=== PATIENT | male | born 2005 | race African-American/Black ===

== ENCOUNTER 2025-04-18 21:56 | Emergency (ER) | payer OTHER, SELFPAY ==
--- NOTE | ~2025-04-18 | CT_ITS ---
EXAMINATION: CT BRAIN W/O DATE: 04/18/2025 22:30 INDICATION: TECHNIQUE: Computed tomography (CT) of the head was performed without intravenous contrast. The dose-length product was 605.33 mGy-cm. COMPARISON: No prior studies for comparison. FINDINGS: Normal brain parenchymal volume for age. Normal abreu-white differentiation. No acute intracranial hemorrhage, infarction, mass or mass effect. No ventriculomegaly or midline shift. Midline sagittal images demonstrate a normal corpus callosum, craniovertebral junction and sella turcica. Basilar cisterns are patent. Paranasal sinuses and mastoids are pneumatized. No depressed skull fractures. IMPRESSION: 1. No acute intracranial abnormality. Reviewed, dictated and finalized at location O.
--- NOTE | ~2025-04-18 | XR_ITS ---
EXAMINATION: XR chest 1V 04/18/2025 22:33 INDICATION: Chest pain. History of sickle cell anemia. PROCEDURE: AP view of the chest COMPARISON: No prior studies for comparison. FINDINGS: The lungs are clear. The cardiomediastinal silhouette is within normal limits. There are no pleural effusions. There is no pneumothorax suspected. IMPRESSION: 1: NO ACUTE CARDIOPULMONARY DISEASE. Reviewed, dictated and finalized at location O.
[2025-04-18 21:56] VITALS: BP 142/67; PULSE 106; RESP 20; TEMP 37; O2SAT 100
[2025-04-18 22:02] VITALS: PULSE 101
[2025-04-18 22:03] VITALS: RESP 17
--- NOTE | 2025-04-18 22:10 | ECG_ITS ---
Test Date: 2025-04-18 22:42:19 Measurements Intervals [place] Rate: 85 P: 50 [place]: 229 QRS: 41 QRSD: 88 T: 30 QT: 353 QTc: 422 Interpretive Statements SINUS RHYTHM WITH FIRST DEGREE AV BLOCK BORDERLINE ECG No previous ECG available for comparison Electronically Signed On 04-19-2025 07:07:43 CDT by Neymar Garcia D.O.
--- NOTE | 2025-04-18 22:11 | ED_ITS ---
HPI - General Adult General Chief complaint: Unspecified <Carmen Munoz PA-C - Last Filed: 04/19/25 03:16> Stated complaint: Pain all over <Carmen Munoz PA-C - Last Filed: 04/19/25 03:16> Time Seen by Provider: 04/19/25 03:24 <Carmen Munoz PA-C - Last Filed: 04/19/25 03:16> History of Present Illness HPI narrative: 19-year-old male presents emergency department via EMS from his college function for concerns for sickle cell crisis. Originally EMS states they were called out for a panic attack. Per the patient he was at a [employer] ED school function dancing when he states he started to get very hot because they are so many people around him. He then went to the staff nearby and became lightheaded and states he felt like he was about to pass out. The staff caught him the patient did not lose consciousness or hit his head. EMS was then contacted and the patient was found lying on the ground anxious. He then started reporting that he was having ?pain all over? and concerned that he was having a sickle cell crisis. Patient was given 75 mcg of fentanyl in the ED with reported improvement by EMS. On arrival to the ED the patient is complaining of headache, chest pain, abdominal pain, tingling in his hands and intermittent difficulty breathing. States this is typically how his sickle cell crisis present. Denies cough, fever, hemoptysis, recent surgeries or hospitalizations, hx of VTE. He believes he is on 5 medications for his sickle cell. His mother is on facetime and was able to confirm his medications over the phone which are as follows: hydrocodone 5mg, folic acid, Zofran, hydroxyurea. States he did not take any hydrocodone today. His management information systems director is Dr. Delaney in [place], [place]. <Carmen Munoz PA-C - Last Filed: 04/19/25 03:16> Related Data Allergies/adverse reactions: Allergies Allergy/AdvReac Type Severity Reaction Status Date / Time No Known Allergies Allergy Verified 04/18/25 22:37 <Carmen Munoz PA-C - Last Filed: 04/19/25 03:16> Review of Systems 2 Review of Systems: All systems reviewed & are unremarkable except as noted in HPI and below <Carmen Munoz PA-C - Last Filed: 04/19/25 03:16> Exam 2 Narrative: GENERAL: Anxious appearing HEAD: Normocephalic, atraumatic. EYES: EOMI. ENT: Nares clear, no rhinorrhea or epistaxis. Mucous membranes moist. NECK: Supple. CHEST: Clear to auscultation. No respiratory distress. Intermittent less than 5 second episodes of tachypnea HEART: Regular rate and rhythm. No murmur heard. Normal peripheral pulses. ABDOMEN: Soft, nontender, nondistended, normal active bowel sounds. No rebound, guarding rigidity. No CVA tenderness EXTREMITIES: Normal range of motion. No edema. Negative Homans bilaterally SKIN: Warm, dry, no rash. NEURO: No focal deficits. Alert and oriented x3. Moving all extremities spontaneously. Cranial nerves 2-12 grossly intact <Carmen Munoz PA-C - Last Filed: 04/19/25 03:16> Course CLERK OF SUPERIOR COURT/PA Physician Supervision This visit was performed by both a physician and an APC. For this patient encounter, I reviewed the CLERK OF SUPERIOR COURT or PA documentation, treatment plan, and medical decision making and had [id number] time with this patient. I performed all aspects of the MDM as documented. <Sima Pablo MD - Last Filed: 04/19/25 04:36> Vital Signs Vital signs: Vital Signs Temperature 98.6 F 04/18/25 21:56 Pulse Rate 106 H 04/18/25 21:56 Respiratory Rate 20 04/18/25 21:56 Blood Pressure 142/67 H 04/18/25 21:56 Pulse Oximetry 100 04/18/25 21:56 Oxygen Delivery Room Air 04/18/25 21:56 Temperature 98.6 F 04/18/25 21:56 Pulse Rate 58 L 04/19/25 04:18 Respiratory Rate 21 H 04/19/25 04:18 Blood Pressure 138/74 04/19/25 04:18 Pulse Oximetry 100 04/19/25 04:18 Oxygen Delivery Room Air 04/18/25 21:56 <Carmen Munoz PA-C - Last Filed: 04/19/25 03:16> Vital Signs Temperature 98.6 F 04/18/25 21:56 Pulse Rate 106 H 04/18/25 21:56 Respiratory Rate 20 04/18/25 21:56 Blood Pressure 142/67 H 04/18/25 21:56 Pulse Oximetry 100 04/18/25 21:56 Oxygen Delivery Room Air 04/18/25 21:56 Temperature 98.6 F 04/18/25 21:56 Pulse Rate 58 L 04/19/25 04:18 Respiratory Rate 21 H 04/19/25 04:18 Blood Pressure 138/74 04/19/25 04:18 Pulse Oximetry 100 04/19/25 04:18 Oxygen Delivery Room Air 04/18/25 21:56 <Sima Pablo MD - Last Filed: 04/19/25 04:36> Medical Decision Making MDM Narrative Medical decision making narrative: 19-year-old male with history of sickle cell anemia presents emergency department with concerns for sickle cell crisis and possible anxiety. See HPI for further history. Triage vitals with blood pressure 142/67 mild tachycardia 106. Patient is afebrile nontoxic appearing. He is very anxious appearing on exam with intermittent bouts of tachypnea. CBC with leukocytosis of 13.1 and hemoglobin of 11.8. His % reticulocyte is 5.9 to%. Patient has never been to our hospital before, no prior labs for comparison. His chemistry show bilirubin of 2.9, otherwise unremarkable. Lipase is normal. D-dimer is mildly elevated to 0.77, PE excluded with years criteria. EKG shows normal sinus rhythm with first-degree AV block, IN interval is 229, normal QRS duration, normal QTC, no ischemic changes. Initial troponin within normal limits. Chest x-ray shows no acute cardiopulmonary disease. Patient given IV fluids, Tylenol, Pepcid, Toradol, morphine and Valium with improvement. On re-evaluation patient is sleeping and easily awoken, resting comfortably in exam bed. He states he is still having headache and abdominal pain but his chest pain has resolved. Will provide Compazine and Benadryl. Pt reevaluated and is found sleeping comfortably again, easily aroused with verbal stimuli. Delta troponin did increase from 0.026 to 0.042. He continues to deny chest pain. Repeat EKG unchanged. Plan to transfer to tertiary facility with hematology consult for sickle cell crisis and elevated troponin. Pending transfer at time of sign-out to Dr. Pablo. <Carmen Munoz PA-C - Last Filed: 04/19/25 03:16> 19-year-old male with history of sickle cell anemia presents emergency department with concerns for sickle cell crisis and possible anxiety. See HPI for further history. Triage vitals with blood pressure 142/67 mild tachycardia 106. Patient is afebrile nontoxic appearing. He is very anxious appearing on exam with intermittent bouts of tachypnea. CBC with leukocytosis of 13.1 and hemoglobin of 11.8. His % reticulocyte is 5.9 to%. Patient has never been to our hospital before, no prior labs for comparison. His chemistry show bilirubin of 2.9, otherwise unremarkable. Lipase is normal. D-dimer is mildly elevated to 0.77, PE excluded with years criteria. EKG shows normal sinus rhythm with first-degree AV block, IN interval is 229, normal QRS duration, normal QTC, no ischemic changes. Initial troponin within normal limits. Chest x-ray shows no acute cardiopulmonary disease. Patient given IV fluids, Tylenol, Pepcid, Toradol, morphine and Valium with improvement. On re-evaluation patient is sleeping and easily awoken, resting comfortably in exam bed. He states he is still having headache and abdominal pain but his chest pain has resolved. Will provide Compazine and Benadryl. Pt reevaluated and is found sleeping comfortably again, easily aroused with verbal stimuli. Delta troponin did increase from 0.026 to 0.042. He continues to deny chest pain. Repeat EKG unchanged. Plan to transfer to tertiary facility with hematology consult for sickle cell crisis and elevated troponin. Pending transfer at time of sign-out to Dr. Pablo. Samy: Patient was signed out to me pending transfer. Case discussed with the on-call hospitalist Dr. Charles at 0426 who accepted transfer. Patient is currently pending a bed. <Sima Pablo MD - Last Filed: 04/19/25 04:36> Vital Signs Vital Signs: Vital Signs Temperature 98.6 F 04/18/25 21:56 Pulse Rate 106 H 04/18/25 21:56 Respiratory Rate 20 04/18/25 21:56 Blood Pressure 142/67 H 04/18/25 21:56 Pulse Oximetry 100 04/18/25 21:56 Oxygen Delivery Room Air 04/18/25 21:56 Temperature 98.6 F 04/18/25 21:56 Pulse Rate 58 L 04/19/25 04:18 Respiratory Rate 21 H 04/19/25 04:18 Blood Pressure 138/74 04/19/25 04:18 Pulse Oximetry 100 04/19/25 04:18 Oxygen Delivery Room Air 04/18/25 21:56 <Carmen Munoz PA-C - Last Filed: 04/19/25 03:16> Vital Signs Temperature 98.6 F 04/18/25 21:56 Pulse Rate 106 H 04/18/25 21:56 Respiratory Rate 20 04/18/25 21:56 Blood Pressure 142/67 H 04/18/25 21:56 Pulse Oximetry 100 04/18/25 21:56 Oxygen Delivery Room Air 04/18/25 21:56 Temperature 98.6 F 04/18/25 21:56 Pulse Rate 58 L 04/19/25 04:18 Respiratory Rate 21 H 04/19/25 04:18 Blood Pressure 138/74 04/19/25 04:18 Pulse Oximetry 100 04/19/25 04:18 Oxygen Delivery Room Air 04/18/25 21:56 <Sima Pablo MD - Last Filed: 04/19/25 04:36> Lab Data Result diagrams: 04/18/25 22:49 04/18/25 22:49 <Carmen Munoz PA-C - Last Filed: 04/19/25 03:16> Labs: Lab Results 04/18/25 04/19/25 Range/Units 22:49 01:35 WBC 13.1 H (4.5-10.0) K/mm3 RBC 3.53 L (4.6-6.20) M/mm3 Hgb 11.8 L (14.0-18.0) g/dL Hct 31.5 L (42.0-52.0) % MCV 89.2 (80-100) fl MCH 33.4 (26-34) pg MCHC 37.5 H (32-36) g/dl RDW 14.5 (11.5-14.5) % Plt Count 353 (150-375) k/mm3 MPV 8.8 (7.4-10.4) fl Immature Gran % (Auto) 1.1 H (0-0.5) % Neut % (Auto) 78.8 H (45.5-73.1) % Lymph % (Auto) 12.4 L (18.3-44.2) % [place] % (Auto) 7.1 (2.6-8.5) % Eos % (Auto) 0.1 (0-4.4) % Baso % (Auto) 0.5 (0.2-1.2) % Lymph # (Auto) 1.63 (0.9-3.2) K/mm3 [place] # (Auto) 0.9 H (0.1-0.6) K/mm3 Eos # (Auto) 0.0 (0-0.3) K/mm3 Baso # (Auto) 0.1 (0.0-0.1) K/mm3 Abs Immat Gran (auto) 0.14 H (0.00-0.031) K/mm3 Absolute Neuts (auto) 10.4 H (1.3-6.7) K/mm3 Absolute Nucleated RBC 0.050 H (0.0-0.012) K/mm3 Nucleated RBC % 0.4 H (0.0-0.2) % Absolute Retic 0.21 H (0.02-0.10) 10^6/uL Percent Retic 5.92 H (0.7-4.3) % Immature Retic Fraction 31.4 H (3.0-15.9) % Retic Hgb Content 34.6 (28.2-36.6) pg PT 15.4 H (11.1-14.7) Seconds INR 1.2 APTT 26.7 (22.3-36.8) Seconds D-Dimer 0.77 H (<0.48) ug/mL Sodium 137 (137-145) mmol/L Potassium 3.5 (3.4-5.0) mmol/L Chloride 102 (98-107) mmol/L Carbon Dioxide 26 (22-30) mmol/L Anion Gap 9 (4-12) mmol/L BUN 12 (9-20) mg/dL Creatinine 0.90 (0.7-1.3) mg/dL Estim Creat Clear Calc 100 ml/min Estimated GFR > 60 (59 - ) Glucose 105 (65-110) mg/dL Calcium 9.6 (8.4-10.2) mg/dL Magnesium 1.6 (1.6-2.3) mg/dL Total Bilirubin 2.9 H (0.2-1.3) mg/dL AST 56 (17-59) U/L ALT 17 (6-50) U/L Alkaline Phosphatase 78 (38-126) U/L Troponin I 0.026 0.042 H* D (0.000-0.034) ng/mL Total Protein 8.3 H (6.3-8.2) g/dL Albumin 4.8 (3.5-5.1) g/dL Lipase 86 (23-300) U/L Urine Color Yellow (Yellow) Urine Appearance Clear (Clear) Urine pH 6.0 (5.0-9.0) Ur Specific [place] 1.007 (1.001-1.035) Urine Protein Negative (Negative) mg/dL Urine Glucose (UA) Trace H (Negative) mg/dL Urine Ketones Negative (Negative) mg/dL Ur Blood (Man) Negative (Negative) Urine Nitrate Negative (Negative) Urine Bilirubin Negative (Negative) Urine Urobilinogen 1.0 (<2.0) mg/dL Leukocyte Esterase Rfl Negative (Negative) SUMEET/UL <Carmen Munoz PA-C - Last Filed: 04/19/25 03:16> Lab Results 04/18/25 04/19/25 Range/Units 22:49 01:35 WBC 13.1 H (4.5-10.0) K/mm3 RBC 3.53 L (4.6-6.20) M/mm3 Hgb 11.8 L (14.0-18.0) g/dL Hct 31.5 L (42.0-52.0) % MCV 89.2 (80-100) fl MCH 33.4 (26-34) pg MCHC 37.5 H (32-36) g/dl RDW 14.5 (11.5-14.5) % Plt Count 353 (150-375) k/mm3 MPV 8.8 (7.4-10.4) fl Immature Gran % (Auto) 1.1 H (0-0.5) % Neut % (Auto) 78.8 H (45.5-73.1) % Lymph % (Auto) 12.4 L (18.3-44.2) % [place] % (Auto) 7.1 (2.6-8.5) % Eos % (Auto) 0.1 (0-4.4) % Baso % (Auto) 0.5 (0.2-1.2) % Lymph # (Auto) 1.63 (0.9-3.2) K/mm3 [place] # (Auto) 0.9 H (0.1-0.6) K/mm3 Eos # (Auto) 0.0 (0-0.3) K/mm3 Baso # (Auto) 0.1 (0.0-0.1) K/mm3 Abs Immat Gran (auto) 0.14 H (0.00-0.031) K/mm3 Absolute Neuts (auto) 10.4 H (1.3-6.7) K/mm3 Absolute Nucleated RBC 0.050 H (0.0-0.012) K/mm3 Nucleated RBC % 0.4 H (0.0-0.2) % Absolute Retic 0.21 H (0.02-0.10) 10^6/uL Percent Retic 5.92 H (0.7-4.3) % Immature Retic Fraction 31.4 H (3.0-15.9) % Retic Hgb Content 34.6 (28.2-36.6) pg PT 15.4 H (11.1-14.7) Seconds INR 1.2 APTT 26.7 (22.3-36.8) Seconds D-Dimer 0.77 H (<0.48) ug/mL Sodium 137 (137-145) mmol/L Potassium 3.5 (3.4-5.0) mmol/L Chloride 102 (98-107) mmol/L Carbon Dioxide 26 (22-30) mmol/L Anion Gap 9 (4-12) mmol/L BUN 12 (9-20) mg/dL Creatinine 0.90 (0.7-1.3) mg/dL Estim Creat Clear Calc 100 ml/min Estimated GFR > 60 (59 - ) Glucose 105 (65-110) mg/dL Calcium 9.6 (8.4-10.2) mg/dL Magnesium 1.6 (1.6-2.3) mg/dL Total Bilirubin 2.9 H (0.2-1.3) mg/dL AST 56 (17-59) U/L ALT 17 (6-50) U/L Alkaline Phosphatase 78 (38-126) U/L Troponin I 0.026 0.042 H* D (0.000-0.034) ng/mL Total Protein 8.3 H (6.3-8.2) g/dL Albumin 4.8 (3.5-5.1) g/dL Lipase 86 (23-300) U/L Urine Color Yellow (Yellow) Urine Appearance Clear (Clear) Urine pH 6.0 (5.0-9.0) Ur Specific [place] 1.007 (1.001-1.035) Urine Protein Negative (Negative) mg/dL Urine Glucose (UA) Trace H (Negative) mg/dL Urine Ketones Negative (Negative) mg/dL Ur Blood (Man) Negative (Negative) Urine Nitrate Negative (Negative) Urine Bilirubin Negative (Negative) Urine Urobilinogen 1.0 (<2.0) mg/dL Leukocyte Esterase Rfl Negative (Negative) SUMEET/UL <Sima Pablo MD - Last Filed: 04/19/25 04:36> Discharge Plan Discharge Clinical Impression: Sickle cell pain crisis, Elevated troponin <Carmen Munoz PA-C - Last Filed: 04/19/25 03:16> Patient Disposition: Acute Care Hospital <Carmen Munoz PA-C - Last Filed: 04/19/25 03:16> Condition: Serious <Carmen Munoz PA-C - Last Filed: 04/19/25 03:16> Instructions: Antibiotic Form <SOILA Franco Last Filed: 04/19/25 03:16> Patient Language: Colombian <SOILA Franco Last Filed: 04/19/25 03:16> Follow-up/Referrals: PHYSICIAN,RIGGER UP [Primary Care Provider, Internal Medicine] <Carmen Munoz PA-C - Last Filed: 04/19/25 03:16> Time of Disposition: 04:35 <Carmen Munoz PA-C - Last Filed: 04/19/25 03:16> 04:35 <Sima Pablo MD - Last Filed: 04/19/25 04:36>
[2025-04-18] MEDS: SODIUM CHLORIDE 0.9% IV 1,000 ML 999 ML IV CONT (22:37)
[2025-04-18] MEDS: ACETAMINOPHEN 500 MG TABLET 1000 MG PO (22:38)
[2025-04-18] MEDS: MORPHINE SULFATE (*CRX) 4 MG/ML INJ IV PUSH (22:39)
[2025-04-18] MEDS: KETOROLAC 30 MG/ML VIAL (*BKC) IV PUSH (22:39)
[2025-04-18] MEDS: FAMOTIDINE 20 MG/2 ML VIAL IV PUSH (22:41)
[2025-04-18 22:45] VITALS: BP 125/72; PULSE 90; RESP 15; O2SAT 100
[2025-04-18] MEDS: diazePAM INJ (*CRX) 10 MG/2 ML SYRINGE 5 MG IV PUSH (22:57)
[2025-04-18 23:06] LABS: INR 1.2; Partial Thromboplastin Time 26.7 Seconds (22.3-36.8); Prothrombin Time 15.4 Seconds (11.1-14.7)
[2025-04-18 23:10] LABS: Immature Reticulocyte Fraction 31.4 % (3.0-15.9); Reticulocyte Hemoglobin Conten 34.6 pg (28.2-36.6); Reticulocytes Absolute 0.21 10^6/uL (0.02-0.10)
[2025-04-18 23:12] LABS: Alanine Aminotransferase 17 U/L (6-50); Albumin Level 4.8 g/dL (3.5-5.1); Alkaline Phosphatase 78 U/L (38-126); Anion Gap 9 mmol/L (4-12); Aspartate Amino Transferase 56 U/L (17-59); Bilirubin,Total 2.9 mg/dL (0.2-1.3); Blood Urea Nitrogen 12 mg/dL (9-20); Calcium 9.6 mg/dL (8.4-10.2); Carbon Dioxide 26 mmol/L (22-30); Chloride 102 mmol/L (98-107); Estimated CRCL calculation 100 ml/min; Estimated Glomerular Filt Rate > 60; Glucose 105 mg/dL (65-110); Lipase 86 U/L (23-300); Magnesium 1.6 mg/dL (1.6-2.3); Potassium 3.5 mmol/L (3.4-5.0); Sodium 137 mmol/L (137-145); Total Protein 8.3 g/dL (6.3-8.2)
[2025-04-18 23:13] LABS: Hematocrit 31.5 % (42.0-52.0); Hemoglobin 11.8 g/dL (14.0-18.0); Immature Granulocyte Percent A 1.1 % (0-0.5); Lymphocytes Absolute Auto 1.63 K/mm3 (0.9-3.2); Mean Corpuscular HGB Conc 37.5 g/dl (32-36); Mean Corpuscular Hemoglobin 33.4 pg (26-34); Mean Corpuscular Volume 89.2 fl (80-100); Nucleated Red Blood Cells Absolute Auto 0.050 K/mm3 (0.0-0.012); Nucleated Red Blood Cells Perc 0.4 % (0.0-0.2); Platelet Count Result 353 k/mm3 (150-375); Red Blood Count 3.53 M/mm3 (4.6-6.20); White Blood Count 13.1 K/mm3 (4.5-10.0)
[2025-04-18 23:19] LABS: Troponin I 0.026 ng/mL (0.000-0.034)
[2025-04-18] MEDS: DEXTROSE 5%/0.45% SOD CHL 1,000 ML 999 ML IV CONT (23:55)
[2025-04-19] MEDS: PROCHLORPERAZINE EDISYLATE 10 MG/2 ML VIAL IV PUSH (00:41)
[2025-04-19 00:45] VITALS: BP 132/74; PULSE 85; RESP 16; O2SAT 97
--- NOTE | 2025-04-19 01:24 | PC.NURSE ---
pt refused blood draw
[2025-04-19 01:46] LABS: Add Urine Microscopic? NO; Appearance Urine Clear (Clear); Glucose Urine UA Trace mg/dL (Negative); Leukocyte Esterase Ur Negative LEU/UL (Negative); Nitrate Urine Negative (Negative); Specific Grav Ur 1.007 (1.001-1.035)
[2025-04-19 01:54] VITALS: BP 125/76; PULSE 90; RESP 14; O2SAT 99
[2025-04-19 02:05] LABS: Troponin I 0.042 ng/mL (0.000-0.034)
--- NOTE | 2025-04-19 02:08 | ECG_ITS ---
Test Date: 2025-04-19 02:13:53 Measurements Intervals [place] Rate: 66 P: 26 [place]: 250 QRS: 35 QRSD: 98 T: 29 QT: 409 QTc: 429 Interpretive Statements SINUS RHYTHM WITH FIRST DEGREE AV BLOCK BORDERLINE T WAVE ABNORMALITY- ANTERIOR LEADS BORDERLINE ECG Compared to ECG 04/18/2025 22:42:19 No significant changes Electronically Signed On 04-19-2025 07:08:05 CDT by Neymar Garcia D.O.
[2025-04-19] MEDS: ASPIRIN 81 MG CHEWABLE TABLET 324 MG PO (02:37)
--- NOTE | 2025-04-19 04:07 | ECG_ITS ---
Test Date: 2025-04-19 04:34:32 Measurements Intervals [place] Rate: 56 P: 46 DC: 252 QRS: 42 QRSD: 111 T: 41 QT: 428 QTc: 416 Interpretive Statements SINUS BRADYCARDIA WITH FIRST DEGREE AV BLOCK INTRAVENTRICULAR CONDUCTION DELAY ST ELEVATION IN DIFFUSE LEADS- PROBABLY EARLY REPOLARIZATION ABNORMALITY BORDERLINE ECG Compared to ECG 04/19/2025 02:13:53 HEART RATE HAS DECREASED Intraventricular conduction delay now present Electronically Signed On 04-19-2025 07:05:09 CDT by Neymar Garcia D.O.
[2025-04-19 04:18] VITALS: BP 138/74; PULSE 58; RESP 21; O2SAT 100
[2025-04-19 05:06] LABS: Troponin I 0.027 ng/mL (0.000-0.034)
[2025-04-19 05:51] VITALS: BP 138/74; PULSE 58; RESP 21; O2SAT 100
== END 2025-04-19 05:54 | disposition short-term general hospital (02) ==
PROVIDERS: Physician Assistant; Emergency Provider Emergency Medicine
DX: D57.00 Hb-SS disease with crisis, unspecified (principal); R79.89 Other specified abnormal findings of blood chemistry; I44.0 Atrioventricular block, first degree; R00.1 Bradycardia, unspecified; R94.31 Abnormal electrocardiogram [ECG] [EKG]
CPT/HCPCS: 36415; 70450; 71045; 80053; 81003; 83690; 83735; 84484; 85025; 85046; 85380; 85610; 85730; 93005; 96361; 96374; 96375; 99285; A9270; J0780; J1200; J1885; J2270; J3360; J7030

== ENCOUNTER 2025-04-20 16:40 | Emergency (ER) | payer OTHER, SELFPAY ==
--- OUTSIDE RECORDS SUMMARY | 2025-04-19 04:36 | XMS_ITS | Encounter Summary ---
Author Organization [facility] Address [facility] [place] [address] Care Team Providers Care Parts Representative Name Role Phone Unavailable Primary Care Provider Unavailabl e Reason for Referral * Consultation (Routine) - Open Specialty Diagnoses / Procedures Referred By Contac t Referred To Contact Internal Medicine Diagnoses Sickle cell disease with crisis and other complication ([place]) [place] [address] [place] [address] Phone: tel: fax: Referral ID Status Reason Start Date Expiration Date V isits Requested Visits Authorized [id number] Open Specialty Services Required 04/20/2025 04/20/2026 1 1 * (Routine) - Authorized Specialty Diagnoses / Procedures Referred By Contlisa t Referred To Contact Procedures [place] [id number] [address] Phone: tel: [place]: [place] [address] [facility] [address] [place] [address] Phone: tel: fax: Referral ID Status Reason Start Date Expiration Date V isits Requested Visits Authorized [id number] Authorized 04/20/2025 04/20/2026 1 1 * Consultation (Routine) - Open Specialty Diagnoses / Procedures Referred By Contac t Referred To Contact Diagnoses Sickle cell disease with crisis and other complication ([place]CC) [place] [id number] [address] [place] [place] [address] Phone: tel: fax: Referral ID Status Reason Start Date Expiration Date V isits Requested Visits Authorized [id number] Open Specialty Services Required 04/20/2025 04/20/2026 1 1 Encounter Details Date Type Department Care Team (Latest Contact Info) Description 04/19/2025 4:36 AM CDT - 04/20/2025 12:35 PM CDT Hospital Encounter [facility] [id number] [place] [address] HELENA Rocha [address] [place] [id number] [place] [address] [place] [id number] [place] [address] Hospitalist Discharge Disposition: Home or Self Care Social History Tobacco Use Types Packs/Day Years Used Date Smoking Tobacco: Never Assessed Sex and Gender Information Value Date Recorded Sex Assigned at Not on file Legal Sex Male 3:40 AM CDT Gender Identity Not on file Sexual Orientation Not on file documented as of this encounter Last Filed Vital Signs Vital Sign Reading Time Taken Comments Blood Pressure 125/58 04/20/2025 11:27 AM CDT Pulse 72 04/20/2025 11:27 AM CDT Temperature 37.1 C (98.8 F) 04/20/2025 11:27 AM CDT Respiratory Rate 18 04/20/2025 11:27 AM CDT Oxygen Saturation 95% 04/20/2025 11:27 AM CDT Inhaled Oxygen Concentration - - Weight 78.7 kg (173 lb 8 oz) 04/19/2025 10:00 AM CDT Height 165.1 cm (5' 5) 04/19/2025 10:00 AM CDT Body Mass Index 28.87 04/19/2025 10:00 AM CDT documented in this encounter Discharge Summaries * Theresa Art MD - 04/20/2025 10:31 AM CDT HOSPITALIST DISCHARGE SUMMARY NAME: Christoph Wilcox : 2005 DATE OF ADMISSION: 04/19/2025 DATE OF DISCHARGE: 04/20/2025 FINAL DIAGNOSES: Include all new and active diagnoses. Sickle cell anemia Acute vasoocclusive crisis First degree AV block, POA DISCHARGE DESTINATION: Home FOLLOW UP PLAN: Include list of active issues: Next steps Testing & Referrals Scheduled: Testing & Referrals TBD: Timing Provider Follow-up with PCP in one week Follow-up with Manager Military in 1-2 weeks Referral to Cardiology provided for monitoring of 1st degree heart block GOALS OF CARE FOLLOW UP PLAN Readmission Risk Score:N/A EOL Index: 0 Not Applicable READMISSION RISK SCORE: 19+: high 30 day readmission risk 0-18: low-moderate 30 day readmission risk EOL INDEX: N/A at 10:31 AM 04/20/2025 0 at 10:31 AM 04/20/2025 PRESENTING HISTORY: Pt is a 19 year old with PMH significant for sickle cell anemia initially presented to OSH with complaints of generalized pain and was subsequently transferred for management of sickle cell vasoocclusive crisis. Patient reports that this is his 2nd episode of severe pain in the last 2 weeks. The pain started in his legs, then his chest, head and whole-body. He denies having any fevers, chills, shortness of breath or cough. He reports he is from [facility] and that his medical records auditor is there, and he moved here for college. HOSPITAL COURSE: (include consults and procedure details) At OSH, Hb was 11.8, reticulocyte count elevated at 5.92, d dimer negative, CT Head and CXR were unremarkable. Troponins were noted to be 0.026 and 0.042. On admission to [facility], patient reported his pain had improved significantly. Troponin was negative, ECG showed 1st degree AV block. Patient denied having light headedness, syncope, dyspnea, chest pain. The above was discussed with patient and his mother. He is being discharged home with the advice tofollow-up with PCP, Hematology and Cardiology. POA ACTIVATED STATUS: YES RECENT/NOTABLE LABS: include pertinent positives Recent Labs Component Name 04/19/25 1016 SODIUM 142 POTASSIUM 4.1 CHLORIDE 110* CO2 25 BUN 9 CREATININE 0.81 EGFR >90 Recent Labs Component Name 04/19/25 1016 WBC 6.5 HGB 10.5* HCT 28.1* PLTCOUNT 306 VITALS/MENTAL STATUS/NOTIBLE EXAM FINDINGS Most recent weight: Weight: 78.7 kg (173 lb 8 oz) (04/19/25 1000) BP 108/56 (BP Location: Left arm, Patient Position: Lying) Pulse 60 Temp 97.7 ??F (36.5 ??C) (Oral) Resp 18 Ht 1.651 m (5' 5) Wt 78.7 kg (173 lb 8 oz) SpO2 97% Exam: General appearance: alert, no distress ENT: mucous membranes moist CVS: regular rhythm, normal S1 and S2 Pulm: breath sounds symmetric; no rales or wheezes GI: soft, non-tender, with normal bowel sounds MSK: no edema Neuro: Alert and oriented x 3, no gross focal deficits DISCHARGE MEDICATIONS AND ALLERGIES This list of medications is preliminary and tentative: please see the Patient Discharge Instructions for patients discharged home or the Facility Transfer Order for the final and accurate medication list. Current Discharge Medication List CONTINUE taking these medications which have NOT CHANGED Instructions Authorizing Provider folic acid 1 MG tablet Commonly known as: Folvite Take 1 (one) tablet by mouth once daily HYDROcodone-acetaminophen 5-325 MG tablet Commonly known as: [place] Take 1 (one) tablet by mouth every 6 hours as needed for Pain ALLERGIES: Allergies[1] DISCHARGE INSTRUCTIONS Referral to Hematology Why you were hospitalized Your discharge diagnosis is: Sickle-cell disease with vaso-occlusive pain (HCC) [450898] Recommendation for Primary Care Physician follow up It is important for you to have a healthcare provider near the place you live. We recommend you establish with a healthcare provider as soon as possible. Please call the hospital to request that a summary of your hospital record be sent to your new healthcare provider. Follow Up Instructions for Patient: Within 5-10 Days from Discharge Follow up with provider 1st degree heart block Follow Up Instructions for Patient: Other (See Comment) 2 weeks ISOLATION PRECAUTIONS No active isolations. Isolation due to No active infections. I spent 35 minutes in addition to direct patient care summarizing this patient's hospital stay, reviewing and updating the inpatient problem list, reviewing discharge medications, instructions, discussing discharge care planand discharge follow up labs/studies/doctor visits with the patient and or POA/family. Theresa Art MD [1] No Known Allergies documented in this encounter Discharge Instructions * Discharge Instructions* Theresa Art MD - 04/20/2025 10:13 AM CDT [facility] [address] [place] [address] documented in this encounter Medications at Time of Discharge folic acid (Folvite) 1 MG tablet Take 1 (one) tablet by mouth once daily HYDROcodone-aceta minophen ([place]) 5-325 MG tablet Take 1 (one) tablet by mouth every 6 hours as needed for Pain documented as of this encounter Progress Notes * Roberta Pedersen RN - 04/20/2025 12:41 PM CDT Problem: Pain/Discomfort Goal: Patient exhibits reduced pain/discomfort as evidenced by pain scores Outcome: Progressing Goal: Patient uses pharmacological and non-pharmacological pain management strategies. Outcome: Progressing Goal: Patient verbalizes acceptable level of pain relief and ability to engage in desired activity. Outcome: Progressing * Jhoan Waller PharmD - 04/20/2025 12:01 PM CDT Clinical Pharmacist Discharge Medication Reconciliation Review Patient's home medication list and inpatient orders were reviewed and compared to the discharge order summary and the AVS placed by the provider. Patients MAR, progress notes, recent labs, micro, vitals, procedural results, etc. reviewed as necessary. READMISSION RISK SCORE is N/A at 12:01 PM 04/20/2025. Readmission risk score > 18 are considered high risk for readmission. ASSESSMENT Medication discrepancies identified or potential areas for Intervention: None PLAN No medication adjustments were made after physician's discharge medication reconciliation. MEDICATION RECONCILIATION REVIEW AVS was updated as necessary. 04/20/2025 at 12:01 PM * Ene William RN - 04/20/2025 11:50 AM CDT Care Coordination Progress Note Expected Discharge Date: 04/20/2025 Discharge Plan: CM provided pt with list of PCP's in [facility] to assist with follow up within 5-10 days. Pt also encouraged to inquire about on campus clinic at [facility]. Pt states he may just go back home thisweek and see his own PCP. Family Support (Name and Phone): Extended Emergency Contact Information Primary Emergency Contact: CISCO MESSER Mobile Relation: Mother Transportation at Discharge: Drives self: READMISSION RISK SCORE is N/A at 11:50 AM 04/20/2025.: Name: Ene William RN * Theresa Art MD - 04/19/2025 2:33 PM CDT I spoke with patient's mother Demetria Messer who reports patient does take hydroxyurea but she is notaware of the dose. She will check and let us know of the same. Updated her that we are working on pain control, and that his labs are stable and troponin is not elevated on labs here. Theresa Art MD documented in this encounter H&P Notes * Theresa Art MD - 04/19/2025 10:35 AM CDT Date of Admission : 04/19/2025 PCP: No primary care provider on file. Reason for Admission : Sickle cell anemia with vasoocclusive crisis HPI: Pt is a 19 year old with PMH significant for sickle cell anemia initially presented to OSH with complaints of generalized pain and was subsequently transferred for management of sickle cell vasoocclusive crisis. Patient reports that this is his 2nd episode of severe pain in the last 2 weeks. The pain started in his legs, then his chest, head and whole-body. He denies having any fevers, chills, shortness of breath or cough. He reports he is from [facility] and that his medical records auditor is there, and he moved here for college. Has no cough, hemoptysis, URI symptoms Denies nausea, vomiting, abdominal pain, diarrhea, melena, constipation Has no fever or chills, rash, flank pain, hematuria, frequency of micturition Has no lightheadedness, dizziness, no headache, focal weakness, vision abnormalities or balance issues At OSH, Hb was 11.8, reticulocyte count elevated at 5.92, d dimer negative, CT Head and CXR were unremarkable. Troponins were noted to be 0.026 and 0.042. Allergies Allergies[1] Past Medical History[2] Past Surgical History[3] Medications Ordered Prior to Encounter[4] Social History Does not endorse smoking, no significant alcohol or other substance use Family History Has been reviewed ROS As per HPI, rest of the 14 point ROS were reviewed and were negative PHYSICAL EXAM: Patient Vitals for the past 24 hrs: Temp Pulse Resp BP 04/19/25 1131 97.9 ??F (36.6 ??C) 71 18 119/60 04/19/25 0758 98 ??F (36.7 ??C) 60 17 101/45 General appearance: alert, cooperative, comfortable at rest HEENT : Non icteric conjunctiva, normocephalic , MM moist CVS: regular rhythm, normal S1 and S2 Pulm: breath sounds symmetric; no rales or wheezes GI: soft, non-tender, bowel sounds heard MSK/Extremities: no edema Neuro: alert and oriented x 3, no gross focal deficits Psych: calm Skin: no rash LABS AND IMAGING DONE SINCE ADMISSION WERE REVIEWED BY ME ASSESSMENT AND PLAN Sickle cell anemia Acute vasoocclusive crisis -hemoglobin stable at 10.5 -patient reports taking hydroxyurea but is not sure of the dose -folic acid -pain control -IV fluid hydration -monitor hemoglobin and transfuse if less than 7 Advance Care Plan : Full code Patients Functional Baseline prior to admit : Ambulatory, independent Discharge Planning to Next Site of Care: Home READMISSION RISK SCORE is N/A at 2:04 PM 04/19/2025. { Risk Factors for Mortality Present at Time of Admission Patient Diagnoses Present at the Time of Admission Anemia requiring further monitoring Anemia: Other Anemia Theresa Art MD [1] No Known Allergies [2] No past medical history on file. [3] No past surgical history on file. [4] No current facility-administered medications on file prior to encounter. No current outpatient medications on file prior to encounter. documented in this encounter Plan of Treatment Scheduled Orders Name Type Priority Associated Diagnoses Orde r Schedule EKG 12-LEAD ECG Routine Sickle cell disease with crisis and other complication (HCC) ONCE for 1 Occurrences starting 04/19/2025 until 04/19/2025 Scheduled Referrals Name Type Priority Associated Diagnoses Orde r Schedule Referral to Hematology Outpatient Referral Routine Sickle cell disease with crisis and other complication (HCC) 1 Occurrences starting 04/20/2025 until 04/20/2026 AMB REFERRAL TO PCP Outpatient Referral Routine Sickle cell disease with crisis and other complication (HCC) 1 Occurrences starting 04/20/2025 until 04/20/2026 documented as of this encounter Procedures Procedure Name Priority Date/Time Associated Diagnosis Comments TROPONIN-I HIGH SENSITIVE STAT 04/19/2025 10:16 AM CDT Sickle cell disease with crisis and other complication (HCC) CBC W AUTO DIFFERENTIAL STAT 04/19/2025 10:16 AM CDT Sickle cell disease with crisis and other complication (HCC) BASIC METABOLIC PANEL (CALCIUM TOTAL) STAT 04/19/2025 10:16 AM CDT Sickle cell disease with crisis and other complication (HCC) documented in this encounter Results * TROPONIN-I HIGH SENSITIVE (04/19/2025 10:16 AM CDT) Pathologist [facility] Troponin I High Sensitive 6 <=35 ng/L 04/19/2025 10:52 AM CDT [facility] Blood BLOOD SPECIMEN / Unknown Venipuncture / Unknown 04/19/2025 10:16 AM CDT 04/19/2025 10:28 AM CDT Thersea Art MD LAB - CHEMISTRY ORDERABLES [place] Result Performing Organization Address [facility]/State/ZIP Co de Phone Number [facility] [address] [place] [address] * (ABNORMAL) BASIC METABOLIC PANEL (CALCIUM TOTAL) (04/19/2025 10:16 AM CDT) [facility] Glucose 91 70 - 99 mg/dL 04/19/2025 10:48 AM CDT [facility] Sodium 142 136 - 145 mmol/L 04/19/2025 10:48 AM CDT [facility] Potassium 4.1 3.5 - 5.1 mmol/L 04/19/2025 10:48 AM CDT [facility] Chloride 110(H) 98 - 107 mmol/L 04/19/2025 10:48 AM CDT [facility] CO2 25 22 - 29 mmol/L 04/19/2025 10:48 AM CDT [facility] Calcium 8.9 8.4 - 10.4 mg/dL 04/19/2025 10:48 AM CDT [facility] Anion Gap 7 6 - 16 mmol/L 04/19/2025 10:48 AM CDT [facility] BUN 9 5.3 - 18.7 mg/dL 04/19/2025 10:48 AM CDT [facility] Creatinine 0.81 0.72 - 1.25 mg/dL 04/19/2025 10:48 AM T [facility] eGFR by CKD-EPI >90 >=90 mL/min/1.7 3 m2 04/19/2025 10:48 AM T [facility] Comment:Estimated Glomerular Filtration Rate (eGFR) calculated using the CKD-EPI Creatinine Equation (2020), per the National Kidney Foundation and [place] [employer] recommendations. Blood BLOOD SPECIMEN / Unknown Venipuncture / Unknown 04/19/2025 10:16 AM CDT 04/19/2025 10:28 AM CDT Theresa Art MD LAB - CHEMISTRY ORDERABLES Fin al Result [facility] [address] [place] [id number] * (ABNORMAL) CBC W AUTO DIFFERENTIAL (04/19/2025 10:16 AM CDT) WBC 6.5 4.0 - 10.7 x10E9/L 04/19/2025 11:31 AM CDT [facility] RBC Count 3.14(L) 4.30 - 5.80 x10E12/L 04/19/2025 11:31 AM CDT [facility] Hemoglobin 10.5(L) 13.3 - 17.5 g/dL 04/19/2025 11:31 AM CDT [facility] Hematocrit 28.1(L) 38.7 - 51.1 % 04/19/2025 11:31 AM CDT [facility] MCV 89.5 80.0 - 98.0 fL 04/19/2025 11:31 AM CDT [facility] MCH 31.3 26.7 - 33.6 pg 04/19/2025 11:31 AM CDT [facility] MCHC 35.6 31.7 - 36.3 g/dL 04/19/2025 11:31 AM CDT [facility] RDW-CV 13.8 11.3 - 14.8 % 04/19/2025 11:31 AM CDT [facility] Platelet Count 306 150 - 420 x10E9/L 04/19/2025 11:31 AM CDT [facility] MPV 8.9 7.8 - 11.4 fL 04/19/2025 11:31 AM CDT [facility] Neutrophil % 58.1 41.0 - 74.0 % 04/19/2025 11:31 AM CDT [facility] Lymphocyte % 30.4 17.0 - 47.0 % 04/19/2025 11:31 AM CDT [facility] Monocyte % 7.8 3.0 - 11.0 % 04/19/2025 11:31 AM CDT [facility] Eosinophil % 2.6 0.0 - 7.0 % 04/19/2025 11:31 AM CDT [facility] Basophil % 0.9 0.0 - 1.6 % 04/19/2025 11:31 AM CDT [facility] Immature Granulocytes % 0.2 0.0 - 1.0 % 04/19/2025 11:31 AM CDT [facility] Neutrophil Absolute 3.80 1.60 - 7.50 x10E9/L 04/19/2025 11:31 AM CDT [facility] Lymphocyte Absolute 1.99 1.00 - 4.40 x10E9/L 04/19/2025 11:31 AM CDT [facility] Monocyte Absolute 0.51 0.15 - 1.00 x10E9/L 04/19/2025 11:31 AM CDT [facility] Eosinophil Absolute 0.17 0.00 - 0.60 x10E9/L 04/19/2025 11:31 AM CDT [facility] Basophil Absolute 0.06 0.00 - 0.13 x10E9/L 04/19/2025 11:31 AM CDT [facility] NRBC 0.6(H) <=0.0 /100 WBC 04/19/2025 11:31 AM CDT [facility] Blood BLOOD SPECIMEN / Unknown Venipuncture / Unknown 04/19/2025 10:16 AM CDT 04/19/2025 10:28 AM CDT Theresa Art MD LAB - HEMATOLOGY ORDERABLES [place] Result Performing Organization Address [facility]/State/ZIP Co de Phone Number [facility] [address] [place] [address] documented in this encounter Visit Diagnoses Diagnosis Sickle cell disease with crisis and other complication (HCC)- Primary Sickle cell disease with crisis and other complication (HCC) documented in this encounter Administered Medications Inactive Administered Medications - up to 3 most recent administrations Medication Order MAR Action Action Date Dose Rate Site 0.9% NaCl injection 1-10 mL 1-10 mL, Intracatheter, PRN, Other, peripheral line flush, Starting on 04/19/25 at 0936, Until 04/20/25 at 1342, Flush peripheral IV catheter with 1-10 mL of normal saline before and after medications and prn to clear blood from the line or to verify patency. 0.9% NaCl injection 3 mL 3 mL, Intracatheter, EVERY 8 HOURS, First dose on 04/19/25 at 1400, Until Discontinued, Flush peripheral IV catheter with 3 mL of normal saline every 8 hours. $ Given 04/19/2025 2:52 PM CDT 3 mL acetaminophen (Tylenol) tablet 650 mg 650 mg, Oral, EVERY 4 HOURS PRN, Fever, Mild Pain, Headache, Starting on 04/19/25 at 0936, Until 04/20/25 at 1342, Patient preference for lesser PRN pain meds may be honored when the patient requests a less strong medication, a lower dose, or a less intrusive route of administration when the lesser drug, dose and route have been ordered for the patient. This patient request must be documented in the MAR. If both oral and IV options are ordered for the same pain severity, give oral first unless patient cannot tolerate oral intake $ Given 04/20/2025 9:42 AM CDT 650 mg benzonatate (Tessalon) capsule 100 mg 100 mg, Oral, EVERY 8 HOURS PRN, Cough, dry cough, Starting on 04/19/25 at 0937, Until 04/20/25 at 1342 bisacodyl (Dulcolax) suppository 10 mg 10 mg, Rectal, ONCE PRN, Constipation, if no BM 24 hours after oral bisacodyl, 1 dose, Starting on 04/19/25 at 0937, Until 04/20/25 at 1342 bisacodyl EC (Dulcolax) tablet 5 mg 5 mg, Oral, ONCE PRN, Constipation, no BM for 72 hours, 1 dose, Starting on 04/19/25 at 0937, Until 04/20/25 at 1342, Do not take within 1 hour of antacid, milk or milk product. Do not chew, crush or cut in half. enoxaparin (Lovenox) injection 40 mg 40 mg, Subcutaneous, DAILY, First dose on 04/19/25 at 1400, Until Discontinued, (for prefilled syringes) do not expel air bubble from the syringe prior to the injection Remind Patient to not rub injection site. Could cause hematoma. folic acid (Folvite) tablet 1 mg 1 mg, Oral, DAILY, First dose on 04/19/25 at 1515, Until Discontinued $ Given 04/20/2025 8:02 AM CDT 1 mg $ Given 04/19/2025 2:53 PM CDT 1 mg HYDROcodone-acetaminophen ([place]) 5-325 MG tablet 1 tablet 1 tablet, Oral, EVERY 4 HOURS PRN, Moderate Pain, Severe Pain, Starting on 04/19/25 at 1644, Until 04/20/25 at 1342, Patient preference for lesser PRN pain meds may be honored when the patient requests a less strong medication, a lower dose, or a less intrusive route of administration when the lesser drug, dose and route have been ordered for the patient. This patient request must be documented in the MAR. If both oral and IV options are ordered for the same pain severity, give oral first unless patient cannot tolerate oral intake HYDROmorphone (Dilaudid) injection 1 mg 1 mg, Intravenous, EVERY 3 HOURS PRN, Severe Pain, Starting on 04/19/25 at 1034, Until 04/20/25 at 1342, Patient preference for lesser PRN pain meds may be honored when the patient requests a less strong medication, a lower dose, or a less intrusive route of administration when the lesser drug, dose and route have been ordered for the patient. This patient request must be documented in the MAR. If both oral and IV options are ordered for the same pain severity, give oral first unless patient cannot tolerate oral intake lactated ringers infusion at 125 mL/hr, Intravenous, CONTINUOUS, Starting on 04/19/25 at 1445, Until 04/20/25 at 1031 $ New Bag/Syringe 04/20/2025 8:07 AM CDT 125 mL/hr $ New Bag/Syringe 04/20/2025 12:41 AM CDT 125 m L/hr $ New Bag/Syringe 04/19/2025 4:35 PM CDT 125 mL /hr ondansetron (disintegrating) (Zofran ODT) tablet 4 mg 4 mg, Oral, EVERY 6 HOURS PRN, Nausea/Vomiting, Starting on 04/19/25 at 0936, Until 04/20/25 at 1342, Dissolved orally on tongue ondansetron (Zofran) injection 4 mg 4 mg, Intravenous, EVERY 6 HOURS PRN, Nausea/Vomiting, Starting on 04/19/25 at 0936, Until 04/20/25 at 1342, Administer IV if patient is NPO, actively vomiting, or unable to swallow. polyethylene glycol 3350 (Miralax) packet 17 g 17 g, Oral, DAILY PRN, Constipation, Starting on 04/19/25 at 0937, Until 04/20/25 at 1342, Administer daily when escalating to bisacodyl or fleet prochlorperazine (Compazine) injection 5 mg 5 mg, Intravenous, EVERY 6 HOURS PRN, Nausea/Vomiting, Starting on 04/19/25 at 0936, Until 04/20/25 at 1342, If no relief from ondansetron (ZOFRAN), use prochlorperazine (COMPAZINE) in addition to ondansetron. prochlorperazine (Compazine) injection 5 mg 5 mg, Intramuscular, EVERY 6 HOURS PRN, Nausea/Vomiting, Starting on 04/19/25 at 0936, Until 04/20/25 at 1342, If no relief from ondansetron (ZOFRAN), use prochlorperazine (COMPAZINE) in addition to ondansetron. Use IM route if IV is unavailable. throat lozenge 1 lozenge 1 lozenge, Oral, EVERY 2 HOURS PRN, Sore Throat, Starting on 04/19/25 at 0937, Until 04/20/25 at 1342 documented in this encounter Active and Recently Administered Medications Times are shown in CDT. Scheduled Medication Order 04/18/2025 04/19/2025 04/20/2025 0.9% NaCl injection 3 mL(Linked Group 1) 3 mL, Intracatheter, EVERY 8 HOURS, First dose on 04/19/25 at 1400, Until Discontinued, Flush peripheral IV catheter with 3 mL of normal saline every 8 hours. 1452 ($ Given - Provider: Ericka Dow RN)2115 (Not Administered - Provider: Ira Carter RN - Reason: IV Currently Infusing) 0503 (Not Administered - Provider: Ira Carter RN - Reason: IV Currently Infusing) enoxaparin (Lovenox) injection 40 mg 40 mg, Subcutaneous, DAILY, First dose on 04/19/25 at 1400, Until Discontinued, (for prefilled syringes) do not expel air bubble from the syringe prior to the injection Remind Patient to not rub injection site. Could cause hematoma. 1452 (Not Administered - Provider: Ericka Dow RN - Reason: Refused-Patient) 0803 (Not Administered - Provider: Roberta Pedersen RN - Reason: Refused-Patient) folic acid (Folvite) tablet 1 mg 1 mg, Oral, DAILY, First dose on 04/19/25 at 1515, Until Discontinued 1453 ($ Given - Provider: Ericka Dow RN) 0802 ($ Given - Provider: Roberta Pedersen RN) Continuous Medication Order 04/18/2025 04/19/2025 04/20/2025 lactated ringers infusion (CANCELED) at 125 mL/hr, Intravenous, CONTINUOUS, Starting on 04/19/25 at 1445, Until 04/20/25 at 1031 1635 ($ New Bag/Syringe - Provider: Ericka Dow RN) 0041 ($ New Bag/Syringe - Provider: Ira Carter RN)0807 ($ New Bag/Syringe - Provider: Roberta Pedersen RN) PRN Medication Order 04/18/2025 04/19/2025 04/20/2025 0.9% NaCl injection 1-10 mL(Linked Group 1) 1-10 mL, Intracatheter, PRN, Other, peripheral line flush, Starting on 04/19/25 at 0936, Until 04/20/25 at 1342, Flush peripheral IV catheter with 1-10 mL of normal saline before and after medications and prn to clear blood from the line or to verify patency. acetaminophen (Tylenol) tablet 650 mg 650 mg, Oral, EVERY 4 HOURS PRN, Fever, Mild Pain, Headache, Starting on 04/19/25 at 0936, Until 04/20/25 at 1342, Patient preference for lesser PRN pain meds may be honored when the patient requests a less strong medication, a lower dose, or a less intrusive route of administration when the lesser drug, dose and route have been ordered for the patient. This patient request must be documented in the MAR. If both oral and IV options are ordered for the same pain severity, give oral first unless patient cannot tolerate oral intake 0942 ($ Given - Prov ider: Roberta Pedersen RN) benzonatate (Tessalon) capsule 100 mg 100 mg, Oral, EVERY 8 HOURS PRN, Cough, dry cough, Starting on 04/19/25 at 0937, Until 04/20/25 at 1342 bisacodyl (Dulcolax) suppository 10 mg 10 mg, Rectal, ONCE PRN, Constipation, if no BM 24 hours after oral bisacodyl, 1 dose, Starting on 04/19/25 at 0937, Until 04/20/25 at 1342 bisacodyl EC (Dulcolax) tablet 5 mg 5 mg, Oral, ONCE PRN, Constipation, no BM for 72 hours, 1 dose, Starting on 04/19/25 at 0937, Until 04/20/25 at 1342, Do not take within 1 hour of antacid, milk or milk product. Do not chew, crush or cut in half. HYDROcodone-acetaminophen ([place]) 5-325 MG tablet 1 tablet 1 tablet, Oral, EVERY 4 HOURS PRN, Moderate Pain, Severe Pain, Starting on 04/19/25 at 1644, Until 04/20/25 at 1342, Patient preference for lesser PRN pain meds may be honored when the patient requests a less strong medication, a lower dose, or a less intrusive route of administration when the lesser drug, dose and route have been ordered for the patient. This patient request must be documented in the MAR. If both oral and IV options are ordered for the same pain severity, give oral first unless patient cannot tolerate oral intake HYDROmorphone (Dilaudid) injection 1 mg 1 mg, Intravenous, EVERY 3 HOURS PRN, Severe Pain, Starting on 04/19/25 at 1034, Until 04/20/25 at 1342, Patient preference for lesser PRN pain meds may be honored when the patient requests a less strong medication, a lower dose, or a less intrusive route of administration when the lesser drug, dose and route have been ordered for the patient. This patient request must be documented in the MAR. If both oral and IV options are ordered for the same pain severity, give oral first unless patient cannot tolerate oral intake ondansetron (disintegrating) (Zofran ODT) tablet 4 mg 4 mg, Oral, EVERY 6 HOURS PRN, Nausea/Vomiting, Starting on 8/23/25 at 0936, Until 04/20/25 at 1342, Dissolved orally on tongue ondansetron (Zofran) injection 4 mg 4 mg, Intravenous, EVERY 6 HOURS PRN, Nausea/Vomiting, Starting on 04/19/25 at 0936, Until 04/20/25 at 1342, Administer IV if patient is NPO, actively vomiting, or unable to swallow. polyethylene glycol 3350 (Miralax) packet 17 g 17 g, Oral, DAILY PRN, Constipation, Starting on 04/19/25 at 0937, Until 04/20/25 at 1342, Administer daily when escalating to bisacodyl or fleet prochlorperazine (Compazine) injection 5 mg 5 mg, Intravenous, EVERY 6 HOURS PRN, Nausea/Vomiting, Starting on 04/19/25 at 0936, Until 04/20/25 at 1342, If no relief from ondansetron (ZOFRAN), use prochlorperazine (COMPAZINE) in addition to ondansetron. prochlorperazine (Compazine) injection 5 mg 5 mg, Intramuscular, EVERY 6 HOURS PRN, Nausea/Vomiting, Starting on 04/19/25 at 0936, Until 04/20/25 at 1342, If no relief from ondansetron (ZOFRAN), use prochlorperazine (COMPAZINE) in addition to ondansetron. Use IM route if IV is unavailable. throat lozenge 1 lozenge 1 lozenge, Oral, EVERY 2 HOURS PRN, Sore Throat, Starting on 04/19/25 at 0937, Until 04/20/25 at 1342 Linked Groups Order Group 1: SALINE LOCK, INSERT AND MAINTAIN (CANCELED) Routine, CONTINUOUS, Starting on 04/19/25 at 0945, Until Specified, New collection And 0.9% NaCl injection 3 mLJump to med 3 mL, Intracatheter, EVERY 8 HOURS, First dose on 04/19/25 at 1400, Until Discontinued, Flush peripheral IV catheter with 3 mL of normal saline every 8 hours. And 0.9% NaCl injection 1-10 mLJump to med 1-10 mL, Intracatheter, PRN, Other, peripheral line flush, Starting on 04/19/25 at 0936, Until 04/20/25 at 1342, Flush peripheral IV catheter with 1-10 mL of normal saline before and after medications and prn to clear blood from the line or to verify patency. documented in this encounter
--- NOTE | ~2025-04-20 | CT_ITS ---
EXAMINATION: CTA chest PE protocol DATE: 04/20/2025 19:48 CDT INDICATION: Chest pain. History of sickle cell disease. TECHNIQUE: Computed tomographic angiography (CTA) of the chest was performed with 100 mL Omnipaque-350 intravenous contrast. The dose-length product was 214.28 mGy-cm. Maximum intensity projection 3D-reconstructions of the aorta and other arteries were constructed by the technologist on a separate workstation. Automated exposure control and iterative reconstruction technique were employed. COMPARISON: None. FINDINGS: Heart size normal. No significant pleural or pericardial effusion. Study is technically adequate without evidence for pulmonary embolism. Peripheral pulmonary artery evaluation limited due to contrast bolus timing. No significant pleural or pericardial effusion. No endobronchial lesions. No focal airspace consolidation. No pneumothorax. No acute osseous abnormality. No thoracic lymphadenopathy. IMPRESSION: 1. No acute cardiopulmonary disease. No evidence for pulmonary embolism. Reviewed, dictated and finalized at location O.
--- NOTE | 2025-04-20 16:44 | ECG_ITS ---
Test Date: 2025-04-20 16:45:40 Measurements Intervals [place] Rate: 79 P: 55 VA: 224 QRS: 44 QRSD: 89 T: 36 QT: 379 QTc: 436 Interpretive Statements SINUS RHYTHM WITH SINUS ARRHYTHMIA WITH FIRST DEGREE AV BLOCK BASELINE ARTIFACT- I, II, III, AVR, AVL, AVF, V1, V3-V6 BORDERLINE ECG Compared to ECG 04/19/2025 04:34:32 HEART RATE HAS INCREASED Electronically Signed On 04-20-2025 20:13:19 CDT by Neymar Garcia D.O.
[2025-04-20 16:46] VITALS: BP 142/80; PULSE 80; RESP 24; O2SAT 100
[2025-04-20] MEDS: ACETAMINOPHEN 500 MG TABLET 1000 MG (16:59)
[2025-04-20 17:10] LABS: Hematocrit 31.1 % (42.0-52.0); Hemoglobin 11.4 g/dL (14.0-18.0); Immature Granulocyte Percent A 0.2 % (0-0.5); Lymphocytes Absolute Auto 3.83 K/mm3 (0.9-3.2); Mean Corpuscular HGB Conc 36.7 g/dl (32-36); Mean Corpuscular Hemoglobin 33.2 pg (26-34); Mean Corpuscular Volume 90.7 fl (80-100); Nucleated Red Blood Cells Absolute Auto 0.040 K/mm3 (0.0-0.012); Nucleated Red Blood Cells Perc 0.6 % (0.0-0.2); Platelet Count Result 336 k/mm3 (150-375); Red Blood Count 3.43 M/mm3 (4.6-6.20); White Blood Count 6.2 K/mm3 (4.5-10.0)
[2025-04-20 17:22] LABS: Alanine Aminotransferase 18 U/L (6-50); Albumin Level 4.3 g/dL (3.5-5.1); Alkaline Phosphatase 69 U/L (38-126); Anion Gap 8 mmol/L (4-12); Aspartate Amino Transferase 43 U/L (17-59); Bilirubin,Total 1.7 mg/dL (0.2-1.3); Blood Urea Nitrogen 8 mg/dL (9-20); Calcium 9.1 mg/dL (8.4-10.2); Carbon Dioxide 24 mmol/L (22-30); Chloride 106 mmol/L (98-107); Estimated CRCL calculation 129 ml/min; Estimated Glomerular Filt Rate > 60; Glucose 114 mg/dL (65-110); Lipase 129 U/L (23-300); Potassium 3.5 mmol/L (3.4-5.0); Sodium 138 mmol/L (137-145); Total Protein 7.4 g/dL (6.3-8.2)
[2025-04-20 17:25] LABS: INR 1.2; Prothrombin Time 15.5 Seconds (11.1-14.7)
[2025-04-20 17:26] LABS: Partial Thromboplastin Time 27.9 Seconds (22.3-36.8)
--- NOTE | 2025-04-20 17:29 | ED.GENADULT ---
HPI - General Adult General Chief complaint: Unspecified <Arsen Walker MD - Last Filed: 04/20/25 19:51> Stated complaint: sickle cell crisis <Arsen Walker MD - Last Filed: 04/20/25 19:51> Time Seen by Provider: 04/20/25 17:18 <Arsen Walker MD - Last Filed: 04/20/25 19:51> History of Present Illness HPI narrative: Patient is a 19-year-old gentleman who presents emergency department with chief complaint of chest pain headache. The patient was see in the emergency department on Monday a transferred home so that he to be seen by Cardiology and Hematology patient reports he was discharged this morning from [facility] and reports that he started having pain in his chest again the patient is followed by freelance graphic designer in [facility]. <Arsen Walker MD - Last Filed: 04/20/25 19:51> Related Data Allergies/adverse reactions: Allergies Allergy/AdvReac Type Severity Reaction Status Date / Time No Known Allergies Allergy Verified 04/18/25 22:37 <Arsen Walker MD - Last Filed: 04/20/25 19:51> Review of Systems Review of Systems: A 10 system review of systems was completed on the patient and is negative except for what is stated in the HPI. Nursing and ancillary documentation was reviewed. <Arsen Walker MD - Last Filed: 04/20/25 19:51> Exam Narrative: GENERAL: Well-appearing, well-nourished, and in no acute distress. HEAD: Normocephalic, atraumatic. EYES: PERRLA and EOMI. ENT: Nares clear, no rhinorrhea or epistaxis. Mucous membranes moist. NECK: Supple. CHEST: Clear to auscultation. No respiratory distress. HEART: Regular rate and rhythm. No murmur heard. Normal peripheral pulses. ABDOMEN: Soft, nontender, nondistended, normal active bowel sounds. EXTREMITIES: Normal range of motion. No edema. SKIN: Warm, dry, no rash. NEURO: No focal deficits. Alert and oriented x3. PSYCH: Normal mood and affect. <Arsen Walker MD - Last Filed: 04/20/25 19:51> Course Vital Signs Vital signs: Vital Signs Pulse Rate 80 04/20/25 16:46 Respiratory Rate 24 H 04/20/25 16:46 Blood Pressure 142/80 H 04/20/25 16:46 Pulse Oximetry 100 04/20/25 16:46 Oxygen Delivery Room Air 04/20/25 16:46 Temperature 98.2 F 04/20/25 17:31 Pulse Rate 80 04/20/25 16:46 Respiratory Rate 24 H 04/20/25 16:46 Blood Pressure 142/80 H 04/20/25 16:46 Pulse Oximetry 100 04/20/25 16:46 Oxygen Delivery Room Air 04/20/25 16:46 <Arsen Walker MD - Last Filed: 04/20/25 19:51> Vital Signs Pulse Rate 80 04/20/25 16:46 Respiratory Rate 24 H 04/20/25 16:46 Blood Pressure 142/80 H 04/20/25 16:46 Pulse Oximetry 100 04/20/25 16:46 Oxygen Delivery Room Air 04/20/25 16:46 Temperature 98.2 F 04/20/25 17:31 Pulse Rate 80 04/20/25 16:46 Respiratory Rate 24 H 04/20/25 16:46 Blood Pressure 142/80 H 04/20/25 16:46 Pulse Oximetry 100 04/20/25 16:46 Oxygen Delivery Room Air 04/20/25 16:46 <Sima Pablo MD - Last Filed: 04/20/25 20:54> Medical Decision Making [facility] Narrative Medical decision making narrative: Differential diagnosis includes pneumonia, pulmonary embolism, sickle cell pain crisis The patient's hemoglobin is 11.4 reticulocyte count was slightly elevated D-dimer was 0.57 due to this at PE protocol has been ordered troponin was 0.014 BNP is 304 Given the patient has history of sickle cell and also is having elevated troponins on his previous visit with an elevated D-dimer concern for pulmonary embolism is entertained. Patient's pain is being controlled in the emergency department and currently the PE study is pending I will be signing out to the night provider <Arsen Walker MD - Last Filed: 04/20/25 19:51> Differential diagnosis includes pneumonia, pulmonary embolism, sickle cell pain crisis The patient's hemoglobin is 11.4 reticulocyte count was slightly elevated D-dimer was 0.57 due to this at PE protocol has been ordered troponin was 0.014 BNP is 304. Given the patient has history of sickle cell and also is having elevated troponins on his previous visit with an elevated D-dimer concern for pulmonary embolism is entertained. Patient's pain is being controlled in the emergency department and currently the PE study is pending I will be signing out to the night provider. Samy: Patient was signed out to me pending CTA PE protocol. CT angiogram was obtained and include interpreted by me revealing no acute process, no evidence of a PE. Patient's 3 hour troponin/EKG were also reviewed and noted to be within normal limits. Patient's pain is controlled he is resting comfortably. Instructed follow-up with primary care physician/freelance graphic designer within the next 3-5 days and return to the ED if any new or worsening symptoms develop. Provided with strict return precautions. Discharged home in stable condition. <Sima Pablo MD - Last Filed: 04/20/25 20:54> Vital Signs Vital Signs: Vital Signs Pulse Rate 80 04/20/25 16:46 Respiratory Rate 24 H 04/20/25 16:46 Blood Pressure 142/80 H 04/20/25 16:46 Pulse Oximetry 100 04/20/25 16:46 Oxygen Delivery Room Air 04/20/25 16:46 Temperature 98.2 F 04/20/25 17:31 Pulse Rate 80 04/20/25 16:46 Respiratory Rate 24 H 04/20/25 16:46 Blood Pressure 142/80 H 04/20/25 16:46 Pulse Oximetry 100 04/20/25 16:46 Oxygen Delivery Room Air 04/20/25 16:46 <Arsen Walker MD - Last Filed: 04/20/25 19:51> Vital Signs Pulse Rate 80 04/20/25 16:46 Respiratory Rate 24 H 04/20/25 16:46 Blood Pressure 142/80 H 04/20/25 16:46 Pulse Oximetry 100 04/20/25 16:46 Oxygen Delivery Room Air 04/20/25 16:46 Temperature 98.2 F 04/20/25 17:31 Pulse Rate 80 04/20/25 16:46 Respiratory Rate 24 H 04/20/25 16:46 Blood Pressure 142/80 H 04/20/25 16:46 Pulse Oximetry 100 04/20/25 16:46 Oxygen Delivery Room Air 04/20/25 16:46 <Sima Pablo MD - Last Filed: 04/20/25 20:54> Lab Data Result diagrams: 04/20/25 17:04 04/20/25 17:04 <Arsen Walker MD - Last Filed: 04/20/25 19:51> Labs: Lab Results 04/20/25 04/20/25 04/20/25 Range/Units 17:03 17:04 20:06 WBC 6.2 (4.5-10.0) K/mm3 RBC 3.43 L (4.6-6.20) M/mm3 Hgb 11.4 L (14.0-18.0) g/dL Hct 31.1 L (42.0-52.0) % MCV 90.7 (80-100) fl MCH 33.2 (26-34) pg MCHC 36.7 H (32-36) g/dl RDW 14.3 (11.5-14.5) % Plt Count 336 (150-375) k/mm3 MPV 8.6 (7.4-10.4) fl Immature Gran % (Auto) 0.2 (0-0.5) % Neut % (Auto) 26.9 L (45.5-73.1) % Lymph % (Auto) 62.1 H (18.3-44.2) % [place] % (Auto) 7.9 (2.6-8.5) % Eos % (Auto) 2.3 (0-4.4) % Baso % (Auto) 0.6 (0.2-1.2) % Lymph # (Auto) 3.83 H (0.9-3.2) K/mm3 [place] # (Auto) 0.5 (0.1-0.6) K/mm3 Eos # (Auto) 0.1 (0-0.3) K/mm3 Baso # (Auto) 0.0 (0.0-0.1) K/mm3 Abs Immat Gran (auto) 0.01 (0.00-0.031) K/mm3 Absolute Neuts (auto) 1.7 (1.3-6.7) K/mm3 Absolute Nucleated RBC 0.040 H (0.0-0.012) K/mm3 Nucleated RBC % 0.6 H (0.0-0.2) % Absolute Retic 0.19 H (0.02-0.10) 10^6/uL Percent Retic 5.51 H (0.7-4.3) % Immature Retic Fraction 29.8 H (3.0-15.9) % Retic Hgb Content 34.3 (28.2-36.6) pg PT 15.5 H (11.1-14.7) Seconds INR 1.2 APTT 27.9 (22.3-36.8) Seconds D-Dimer 0.57 H (<0.48) ug/mL Sodium 138 (137-145) mmol/L Potassium 3.5 (3.4-5.0) mmol/L Chloride 106 (98-107) mmol/L Carbon Dioxide 24 (22-30) mmol/L Anion Gap 8 (4-12) mmol/L BUN 8 L (9-20) mg/dL Creatinine 0.77 (0.7-1.3) mg/dL Estim Creat Clear Calc 129 ml/min Estimated GFR > 60 (59 - ) Glucose 114 H (65-110) mg/dL Calcium 9.1 (8.4-10.2) mg/dL Total Bilirubin 1.7 H (0.2-1.3) mg/dL AST 43 (17-59) U/L ALT 18 (6-50) U/L Alkaline Phosphatase 69 (38-126) U/L Troponin I 0.014 0.015 (0.000-0.034) ng/mL NT-Pro-B Natriuret Pep 304 H (19.9-100) pg/mL Total Protein 7.4 (6.3-8.2) g/dL Albumin 4.3 (3.5-5.1) g/dL Lipase 129 (23-300) U/L <Arsen Walker MD - Last Filed: 04/20/25 19:51> Lab Results 04/20/25 04/20/25 04/20/25 Range/Units 17:03 17:04 20:06 WBC 6.2 (4.5-10.0) K/mm3 RBC 3.43 L (4.6-6.20) M/mm3 Hgb 11.4 L (14.0-18.0) g/dL Hct 31.1 L (42.0-52.0) % MCV 90.7 (80-100) fl MCH 33.2 (26-34) pg MCHC 36.7 H (32-36) g/dl RDW 14.3 (11.5-14.5) % Plt Count 336 (150-375) k/mm3 MPV 8.6 (7.4-10.4) fl Immature Gran % (Auto) 0.2 (0-0.5) % Neut % (Auto) 26.9 L (45.5-73.1) % Lymph % (Auto) 62.1 H (18.3-44.2) % [place] % (Auto) 7.9 (2.6-8.5) % Eos % (Auto) 2.3 (0-4.4) % Baso % (Auto) 0.6 (0.2-1.2) % Lymph # (Auto) 3.83 H (0.9-3.2) K/mm3 [place] # (Auto) 0.5 (0.1-0.6) K/mm3 Eos # (Auto) 0.1 (0-0.3) K/mm3 Baso # (Auto) 0.0 (0.0-0.1) K/mm3 Abs Immat Gran (auto) 0.01 (0.00-0.031) K/mm3 Absolute Neuts (auto) 1.7 (1.3-6.7) K/mm3 Absolute Nucleated RBC 0.040 H (0.0-0.012) K/mm3 Nucleated RBC % 0.6 H (0.0-0.2) % Absolute Retic 0.19 H (0.02-0.10) 10^6/uL Percent Retic 5.51 H (0.7-4.3) % Immature Retic Fraction 29.8 H (3.0-15.9) % Retic Hgb Content 34.3 (28.2-36.6) pg PT 15.5 H (11.1-14.7) Seconds INR 1.2 APTT 27.9 (22.3-36.8) Seconds D-Dimer 0.57 H (<0.48) ug/mL Sodium 138 (137-145) mmol/L Potassium 3.5 (3.4-5.0) mmol/L Chloride 106 (98-107) mmol/L Carbon Dioxide 24 (22-30) mmol/L Anion Gap 8 (4-12) mmol/L BUN 8 L (9-20) mg/dL Creatinine 0.77 (0.7-1.3) mg/dL Estim Creat Clear Calc 129 ml/min Estimated GFR > 60 (59 - ) Glucose 114 H (65-110) mg/dL Calcium 9.1 (8.4-10.2) mg/dL Total Bilirubin 1.7 H (0.2-1.3) mg/dL AST 43 (17-59) U/L ALT 18 (6-50) U/L Alkaline Phosphatase 69 (38-126) U/L Troponin I 0.014 0.015 (0.000-0.034) ng/mL NT-Pro-B Natriuret Pep 304 H (19.9-100) pg/mL Total Protein 7.4 (6.3-8.2) g/dL Albumin 4.3 (3.5-5.1) g/dL Lipase 129 (23-300) U/L <Sima Pablo MD - Last Filed: 04/20/25 20:54> Discharge Plan Discharge Clinical Impression: Sickle cell pain crisis <Arsen Walker MD - Last Filed: 04/20/25 19:51> Patient Disposition: Still a Patient <Arsen Walker MD - Last Filed: 04/20/25 19:51> Condition: Stable <Arsen Walker MD - Last Filed: 04/20/25 19:51> Instructions: Sickle Cell Crisis (ED) <Arsen Walker MD - Last Filed: 04/20/25 19:51> Additional Instructions: Please follow-up with your primary care physician/freelance graphic designer within the next 3-5 days. Return to the emergency department if any new or worsening symptoms develop. <Arsen Walker MD - Last Filed: 04/20/25 19:51> Patient Language: Nepali <Arsen Walker MD - Last Filed: 04/20/25 19:51> Follow-up/Referrals: Agustín Varma MD [Physician, Hematology] - 3 Days PHYSICIAN,BOAT MECHANIC [Primary Care Provider, Internal Medicine] Sukumar Sandra MD [Physician, Family Practice] - 3 Days <Arsen Walker MD - Last Filed: 04/20/25 19:51> Time of Disposition: 20:15 <Arsen Walker MD - Last Filed: 04/20/25 19:51> 20:15 <Sima Pablo MD - Last Filed: 04/20/25 20:54>
[2025-04-20 17:31] VITALS: TEMP 36.8
[2025-04-20 17:32] LABS: Troponin I 0.014 ng/mL (0.000-0.034)
[2025-04-20 17:40] LABS: Immature Reticulocyte Fraction 29.8 % (3.0-15.9); Reticulocyte Hemoglobin Conten 34.3 pg (28.2-36.6); Reticulocytes Absolute 0.19 10^6/uL (0.02-0.10)
--- OUTSIDE RECORDS SUMMARY | 2025-04-20 17:44 | XMS_ITS | Clinical Summary ---
Author Organization [facility] Address [address] [place] [id number] Care Team Providers Care Irrigation Specialist Name Role Phone Unavailable Primary Care Provider Unavailabl e Allergies No known active allergies Medications No known medications Social History Tobacco Use Types Packs/Day Years Used Date Smoking Tobacco: Never Assessed Sex and Gender Information Value Date Recorded Sex Assigned at Not on file Legal Sex Male 9:28 PM LICENSE REGISTRATION EXAMINER Gender Identity Not on file Sexual Orientation Not on file Last Filed Vital Signs Vital Sign Reading Time Taken Comments Blood Pressure 104/55 07/08/2024 1:53 AM LICENSE REGISTRATION EXAMINER Pulse 96 07/07/2024 9:31 PM LICENSE REGISTRATION EXAMINER Temperature 37.1 C (98.7 F) 07/07/2024 9:31 PM LICENSE REGISTRATION EXAMINER Respiratory Rate 16 07/07/2024 10:22 PM LICENSE REGISTRATION EXAMINER Oxygen Saturation 98% 07/08/2024 1:53 AM LICENSE REGISTRATION EXAMINER Inhaled Oxygen Concentration - - Weight 52.2 kg (115 lb) 07/07/2024 9:31 PM LICENSE REGISTRATION EXAMINER Height 177.8 cm (5' 10) 07/07/2024 9:31 PM LICENSE REGISTRATION EXAMINER Body Mass Index 16.5 07/07/2024 9:31 PM LICENSE REGISTRATION EXAMINER Plan of Treatment Health Maintenance Due Date Last Done Comments MMR Vaccines (1 of 1 - Stand vielka series) 2005 HIB VACCINES (1 of 1 - Risk 1-dose series) 09/22/2005 Meningococcal Vaccine (1 - R isk 2-dose series) 2006 Meningococcal B Vaccine (1 o f 4 - Increased Risk) 2014 Varicella Vaccines (1 of 2 - 13+ 2-dose series) 2017 HPV Vaccines (1 - Male 3-dos e series) 2019 DTaP/Tdap/Td Vaccines (1 - Tdap) 2023 HEPATITIS B VACCINES (1 of 3 - 19+ 3-dose series) 2023 Pneumococcal Vaccine: Pediat rics (0 to 5 Years) and At-Risk Patients (6 to 49 Years) (1 of 2 - PCV) 2023 COVID-19 Vaccine (1 - 2023-2 5 season) 2024 INFLUENZA VACCINE 04/28/2025 ZOSTER VACCINES (1 of 2) 2054 RSV 60+ (1 - 1-dose 75+ series) 2079 Hepatitis A Vaccines Aged Out No long er eligible based on patient's age to complete this topic IPV VACCINES Aged Out No longer eligi ble based on patient's age to complete this topic RSV < 20 Months Aged Out No longer el igible based on patient's age to complete this topic Rotavirus Vaccines Aged Out No longer eligible based on patient's age to complete this topic Insurance [place]ICA[place]
--- OUTSIDE RECORDS SUMMARY | 2025-04-20 17:44 | XMS_ITS | Clinical Summary ---
Author Organization [facility] Address [address] [place] [address] Care Team Providers Care Casino Shift Manager Name Role Phone Unavailable Primary Care Provider Unavailabl e Source Comments [facility],non-owned Affiliates and Associated Physician Practices is amultiple site organization consisting of ambulatory clinics and hospital sitesin [place], [place], [place] and [place]. This disclosure is being madepursuant to the Care Everywhere program and may not contain all information available regarding this patient. Last updated 18.[facility] Allergies No known active allergies Medications * Be aware that medications may not be up to date on this document. Alwaysverify current medications with the patient. HYDROcodone-acet aminophen (Purdum) 5-325 MG tablet Take 1 (one) tablet by mouth every 6 hours as needed for Pain Active folic acid (Folvite) 1 MG tablet Take 1 (one) tablet by mouth once daily Active Active Problems Problem Noted Date Diagnosed Date Sickle cell disease with crisis and other compli cation 04/19/2025 Encounters Date Type Department Care Team Description 04/19/2025 4:36 AM CDT - 04/20/2025 12:35 PM CDT Hospital Encounter [facility] [address] [place] [address] Nuvia Charles MD Sampath, Roshni, MD Hospitalist Discharge Disposition: Home or Self Care 04/19/2025 Travel from Last 3 Months Social History Tobacco Use Types Packs/Day Years [...] Mass Index 28.87 04/19/2025 10:00 AM CDT Plan of Treatment Health Maintenance Due Date Last Done Comments HIB VACCINE (1 of 1 - Risk 1-dose series) 09/22/2005 MENINGOCOCCAL GROUPS A/C/Y/W VACCINE (1 - Risk 2-dose series) 2006 MENINGOCOCCAL (Group B) VACC INE SHARED DECISION-MAKING (1 of 4 - Increased Risk) 2014 HIV SCREENING 2019 HPV VACCINE (1 - Male 3-dose series) 2019 HEPATITIS C SCREENING 06/18/2022 DTAP/TDAP/TD VACCINES (1 - Tdap) 2023 HEPATITIS B VACCINE (1 of 3 - 19+ 3-dose series) 06/22 PNEUMOCOCCAL VACCINE (1 of 2 - PCV) 2023 COVID-19 VACCINE (1 - 2023- season) 2024 DEPRESSION SCREENING 08/28/2024 INFLUENZA VACCINE (#1) 2025 ZOSTER VACCINE (1 of 2) 2054 Procedures Procedure Name Priority Date/Time Associated Diagnosis Comments TROPONIN-I HIGH SENSITIVE STAT 04/19/2025 10:16 AM CDT Sickle cell disease with crisis and other complication (HCC) BASIC METABOLIC PANEL (CALCIUM TOTAL) STAT 04/19/2025 10:16 AM CDT Sickle cell disease with crisis and other complication (HCC) CBC W AUTO DIFFERENTIAL STAT 04/19/2025 10:16 AM CDT Sickle cell disease with crisis and other complication (HCC) from Last 3 Months Results * TROPONIN-I HIGH SENSITIVE (04/19/2025 10:16 AM CDT) [facility] Troponin I High Sensitive 6 <=35 ng/L 04/19/2025 10:52 AM CDT [facility] Blood BLOOD SPECIMEN / Unknown Venipuncture / Unknown 04/19/2025 10:16 AM CDT 04/19/2025 10:28 AM CDT us Theresa Art MD LAB - CHEMISTRY ORDERABLES Fin al Result [facility] [address] [place] [address] * (ABNORMAL) CBC W AUTO DIFFERENTIAL (04/19/2025 10:16 AM CDT) [facility] WBC 6.5 4.0 - 10.7 x10E9/L 04/19/2025 11:31 AM CDT [facility] RBC Count 3.14(L) 4.30 - 5.80 x10E12/L 04/19/2025 11:31 AM CDT [facility] Hemoglobin 10.5(L) 13.3 - 17.5 g/dL 04/19/2025 11:31 AM CDT [facility] Hematocrit 28.1(L) 38.7 - 51.1 % 04/19/2025 11:31 AM CDT [facility] MCV 89.5 80.0 - 98.0 fL 04/19/2025 11:31 AM CDT [facility] MCH 31.3 26.7 - 33.6 pg 04/19/2025 11:31 AM CDT [facility] MCHC 35.6 31.7 - 36.3 g/dL 04/19/2025 11:31 AM CDT [facility] RDW-CV 13.8 11.3 - 14.8 % 04/19/2025 11:31 AM CDT [facility] Platelet Count 306 150 - 420 x10E9/L 04/19/2025 11:31 AM CDT [facility] MPV 8.9 7.8 - 11.4 fL 04/19/2025 11:31 AM CDT [facility] Neutrophil % 58.1 41.0 - 74.0 % 04/19/2025 11:31 AM CDT [facility] Lymphocyte % 30.4 17.0 - 47.0 % 04/19/2025 11:31 AM CDT [facility] Monocyte % 7.8 3.0 - 11.0 % 04/19/2025 11:31 AM CDT [facility] Eosinophil % 2.6 0.0 - 7.0 % 04/19/2025 11:31 AM CDT [facility] Basophil % 0.9 0.0 - 1.6 % 04/19/2025 11:31 AM CDT [facility] Immature Granulocytes % 0.2 0.0 - 1.0 % 04/19/2025 11:31 AM CDT [facility] Neutrophil Absolute 3.80 1.60 - 7.50 x10E9/L 04/19/2025 11:31 AM CDT [facility] Lymphocyte Absolute 1.99 1.00 - 4.40 x10E9/L 04/19/2025 11:31 AM CDT [facility] Monocyte Absolute 0.51 0.15 - 1.00 x10E9/L 04/19/2025 11:31 AM CDT [facility] Eosinophil Absolute 0.17 0.00 - 0.60 x10E9/L 04/19/2025 11:31 AM CDT [facility] Basophil Absolute 0.06 0.00 - 0.13 x10E9/L 04/19/2025 11:31 AM CDT [facility] NRBC 0.6(H) <=0.0 /100 WBC 04/19/2025 11:31 AM CDT [facility] Blood BLOOD SPECIMEN / Unknown Venipuncture / Unknown 04/19/2025 10:16 AM CDT 04/19/2025 10:28 AM CDT us Theresa Art MD LAB - HEMATOLOGY ORDERABLES Fi nal Result [facility] [address] [place] [address] * (ABNORMAL) BASIC METABOLIC PANEL (CALCIUM TOTAL) (04/19/2025 10:16 AM CDT) [facility] Glucose 91 70 - 99 mg/dL 04/19/2025 10:48 AM CDT [facility] Sodium 142 136 - 145 mmol/L 04/19/2025 10:48 AM CDT [facility] Potassium 4.1 3.5 - 5.1 mmol/L 04/19/2025 10:48 AM CDT [facility] Chloride 110(H) 98 - 107 mmol/L 04/19/2025 10:48 AM CDT [facility] CO2 25 22 - 29 mmol/L 04/19/2025 10:48 AM CDT [facility] Calcium 8.9 8.4 - 10.4 mg/dL 04/19/2025 10:48 AM CDT [facility] Anion Gap 7 6 - 16 mmol/L 04/19/2025 10:48 AM CDT [facility] BUN 9 5.3 - 18.7 mg/dL 04/19/2025 10:48 AM CDT [facility] Creatinine 0.81 0.72 - 1.25 mg/dL 04/19/2025 10:48 AM T [facility] eGFR by CKD-EPI >90 >=90 mL/min/1.7 3 m2 04/19/2025 10:48 AM CDT [facility] Comment:Estimated Glomerular Filtration Rate (eGFR) calculated using the CKD-EPI Creatinine Equation (2020), per the National Kidney Foundation and [place] [employer]ph[employer] recommendations. Blood BLOOD SPECIMEN / Unknown Venipuncture / Unknown 04/19/2025 10:16 AM CDT 04/19/2025 10:28 AM CDT us Theresa Art MD LAB - CHEMISTRY ORDERABLES Fin al Result [facility] [address] [place] [address] from Last 3 Months Insurance [id number] [place] [address] Advance Directives * Full Code (Latest Code Status on File) Date Activated Date Inactivated Comments 04/19/2025 9:37 AM 04/20/2025 1:42 PM
--- OUTSIDE RECORDS SUMMARY | 2025-04-20 17:44 | XMS_ITS | Clinical Summary ---
Author Organization [facility] Address [address] [place] [address] Care Team Providers Care Curtain Stretcher Assembler Name Role Phone Pcp, No Primary Care Provider Unavailabl e Allergies No known active allergies Medications No known medications Medical History Medical History Date Comments Sickle cell disease without crisis (CMD) Social History Tobacco Use Types Packs/Day Years Used Date Smoking Tobacco: Never Smokeless Tobacco: Never Tobacco Cessation:Counseling Given: Not Answered Inadequate Housing Answer Date Recorded Social Determinants: Housing (Overall Score Help er) 0 04/15/2023 Sex and Gender Information Value Date Recorded Sex Assigned at Not on file Legal Sex Male 6:22 PM CDT Gender Identity Not on file Sexual Orientation Not on file Obstetrics History Last Filed Vital Signs Vital Sign Reading Time Taken Comments Blood Pressure 120/69 04/15/2023 7:42 PM CDT Pulse 73 04/15/2023 7:42 PM CDT Temperature 36.6 C (97.9 F) 04/15/2023 4:49 PM CDT Respiratory Rate 16 04/15/2023 7:42 PM CDT Oxygen Saturation 99% 04/15/2023 7:42 PM CDT Inhaled Oxygen Concentration - - Weight - - Height - - Body Mass Index - - Plan of Treatment Health Maintenance Due Date Last Done Comments Well Child Visit (ages 3 - 21) 2007 Hepatitis A Vaccine (2 of 2 - 2-dose series) 09/24/2010 03/24/2010 Depression Screening 2016 HPV Vaccine (1 - Male 3-dose series) 2019 Meningococcal Serogroup B Vaccine (1 of 2 - Standard) 2020 COVID-19 Vaccine (3 - season) 2024 02/02/2021, 01/12/2021 Influenza Vaccine (#1) 2025 DTaP/Tdap/Td Vaccine (6 - Td or Tdap) 06/20/2026 06/20/2016, 03/24/2010, 06/25/2009, Additional history exists Pneumococcal Vaccine 0-49 Aged Out 06/05/2009, 03/2005 No longer eligible based on patient's age to complete this topic Hepatitis B Vaccine Completed 03/24/2010, 06/25/2009, 04/21/2009, Additional history exists Varicella Vaccine Completed 03/24/2010, 04/21/2009 Meningococcal Vaccine Aged Out No fabien zachariah eligible based on patient's age to complete this topic Insurance [id number] (Work) [id number] [place] [address] [facility] Address: [facility] [address] [place] [address] Care Teams Curtain Stretcher Assembler Relationship Specialty Start Date End Date Pcp, No PCP - General 04/15/23
--- OUTSIDE RECORDS SUMMARY | 2025-04-20 17:44 | XMS_ITS | Clinical Summary ---
Author Organization [facility] Address [address] [place] [address] Care Team Providers Care Cargo Surveyor Name Role Phone Vik Salvador MD Primary Care Provider Doris Delaney MD Unavailable Allergies No known active allergies Medications acetaminophen (Tylenol) 325 MG capsule Take 1 capsule (325 mg total) by mouth every 6 (six) hours if needed for mild pain. 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 Take at the same time each day. 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 Abnormal EKG 10/21/2024 Sickle cell anemia with crisis 10/20/2024 Resolved Problems Problem Noted Date Diagnosed Date Resolved Date Sickle cell pain crisis 10/17/20242 08/2024 Encounters Date Type Department Care Team Description 04/11/2025 Telephone [facility] Hematology Oncology at [address] [place] [address] Xi Carter RN 04/11/2025 Telephone [facility] Hematology Oncology at [place] [address] [facility] [address] [place] [address] Xi Carter RN 04/07/2025 2:15 PM CDT Office Visit [facility] Hematology Oncology at [place] [address] [facility] [address] [place] [address] Doris Delaney MD 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 Family hx unknown. Relation Name Status Comments Other Social History Tobacco Use Types Packs/Day Years Used Date Smoking Tobacco: Never Smokeless Tobacco: Never Tobacco Cessation:Counseling Given: Not Answered Alcohol Use Standard Drinks/Week Comments Never 0 (1 standard drink = 0.6 oz pur e alcohol) AUDIT-C Answer Date Recorded Q1: How often do you have a drink containing alcohol? Never 12/26/2024 Q2: How many drinks containi ng alcohol do you have on a typical day when you are drinking? Patient does not drink Q3: How often do you have si x or more drinks on one occasion? Never 12/26/2024 [facility] Food Security Answer Date Recorded Within the past 12 months, t he food you bought just didn't last and you didn't have money to get more. 3 12/26/2024 Within the past 12 months, y ou worried that your food would run out before you got money to buy more. 3 12/26/2024 [facility] Transportation Needs Answer Date Re corded In the past 12 months, has l ack of reliable transportation kept you from medical appointments, meetings, work or from getting things needed for daily living? No 12/26/2024 [facility] Housing Answer Date Recorded What is your living situation today? I have a [facility] place to live 12/26/[address] you li ve. Do you have problems with any of the following? None of the above 12/26/2024 [facility] Safety Answer Date Recorded How often does anyone, amy perdomo family and friends, threaten you with harm? 1 12/26/2024 How often does anyone, amy perdomo family and friends, insult or talk down to you? 1 12/26/2024 How often does anyone, amy perdomo family and friends, physically hurt you? 1 12/26/2024 How often does anyone, amy perdomo family and friends, scream or curse at you? 1 12/26/2024 [facility] Utilities Answer Date Recorded In the past 12 months has [employer] electric, gas, oil, or water company threatened to shut off services in your home? No 12/26/2024 Sex and Gender Information Value Date Recorded Sex Assigned at Not on file Legal Sex Male 3:30 AM EST Gender Identity Not on file Sexual Orientation Not on file Last Filed Vital Signs Vital Sign Reading Time Taken Comments Blood Pressure 132/72 04/07/2025 2:10 PM CDT Pulse 63 04/07/2025 2:10 PM CDT Temperature 36.9 C (98.4 F) 04/07/2025 2:10 PM CDT Respiratory Rate 16 04/07/2025 2:10 PM CDT Oxygen Saturation 98% 04/07/2025 2:10 PM CDT Inhaled Oxygen Concentration - - Weight 76.3 kg (168 lb 3.4 oz) 04/07/2025 2:10 P M CDT Height 172.7 cm (5' 7.99) 04/07/2025 2:10 PM CD T Body Mass Index 25.58 04/07/2025 2:10 PM CDT Plan of Treatment Upcoming Encounters Date Type Department Care Team (Late st Contact Info) Description 06/23/2025 9:45 AM CDT Office Visit [facility] Hematology Oncology at [address] [place] [address] Doris Delaney MD [address] [facility] [address] [place] [address] Health Maintenance Due Date Last Done Comments HIV Screening 2004 Annual Physical 12/21/2006 Pneumococcal: Pediatrics (0 to 5 Yrs) and At-Risk Patients (6 to 49 Years) (1 of 2 - PPSV23) 07/31/2009 06/05/2009, 2004 Meningococcal B Vaccine (1 of 5 - Increased Risk) 2014 Depression Screening 2016 Meningococcal Vaccine (2 - Risk 2-dose series) 08/15/2016 06/20/2016 HPV Vaccines (1 - Male 3-dose series) 2019 COVID-19 Vaccine (3 - Pfizer risk series) 03/02/2021 02/02/2021, 01/12/2021 Zoster Vaccines (1 of 2) 2023 Influenza Vaccine (#1) 2025 DTaP/Tdap/Td Vaccines (6 - Td or Tdap) 06/20/2026 06/20/2016, 03/24/2010, 06/25/2009, Additional history exists Respiratory Syncytial Virus (RSV) 60 years and older and/or patients (1 - 1-dose 75+ series) 2079 Hepatitis B Vaccines Completed 03/24/2010, 06/25/2009, 04/21/2009, Additional history exists MMR Vaccines Completed 03/24/2010, 05/29, 04/21/2009 Varicella Vaccines Completed 03/24/2010, 04/21/2009 Hepatitis A Vaccines Aged Out No long er eligible based on patient's age to complete this topic Respiratory Syncytial Virus (RSV) <20 months Aged Out No longer eligible based on patient's age to complete this topic Insurance [facility] MEDICAID Advance Directives * Full Code (Latest Code Status on File) Date Activated Date Inactivated Comments 12/26/2024 3:57 AM 12/27/2024 10:08 PM * Full Code Date Activated Date Inactivated Comments 10/20/2024 10:48 PM 10/21/2024 9:29 PM * Full Code Date Activated Date Inactivated Comments 10/18/2024 12:37 AM 10/18/2024 9:22 PM Care Teams Cargo Surveyor Relationship Specialty Start Date End Date Vik Salvador MD PCP - General Pediatrics 10/17/24 Doris Delaney MD [address] [place] [address] Consulting Physician Hematology and Oncology 04/01/25
--- OUTSIDE RECORDS SUMMARY | 2025-04-20 17:44 | XMS_ITS | Encounter Summary ---
Author Organization [facility] Address [address] [place] [address] [place] [address] Care Team Providers Care Replanting Machine Crewman Name Role Phone Unavailable Primary Care Provider Unavailabl e Encounter Details Date Type Department Care Team (Latest Contact Info) Description 04/19/2025 Travel Social History Tobacco Use Types Packs/Day Years Used Date Smoking Tobacco: Never Assessed Sex and Gender Information Value Date Recorded Sex Assigned at Not on file Legal Sex Male 3:40 AM CDT Gender Identity Not on file Sexual Orientation Not on file documented as of this encounter Plan of Treatment Not on file documented as of this encounter Visit Diagnoses Not on filedocumented in this encounter
[2025-04-20] MEDS: SODIUM CHLORIDE 0.9% IV 1,000 ML 999 ML IV CONT (17:50)
[2025-04-20] MEDS: MORPHINE SULFATE (*CRX) 4 MG/ML INJ IV PUSH (17:50)
[2025-04-20 17:58] LABS: NT Pro B Type Natriuretic Pept 304 pg/mL (19.9-100)
--- NOTE | 2025-04-20 20:04 | ECG_ITS ---
Test Date: 2025-04-20 20:06:51 Measurements Intervals [place] Rate: 59 P: 22 UT: 233 QRS: 29 QRSD: 87 T: 23 QT: 405 QTc: 403 Interpretive Statements SINUS BRADYCARDIA WITH FIRST DEGREE AV BLOCK MINIMAL Q WAVES- HIGH LATERAL LEADS BORDERLINE T WAVE ABNORMALITY- ANTERIOR LEADS BASELINE ARTIFACT- I, II, AVR Compared to ECG 04/20/2025 16:45:40 HEART RATE HAS DECREASED Electronically Signed On 04-20-2025 20:11:06 CDT by Neymar Garcia D.O.
[2025-04-20 20:33] LABS: Troponin I 0.015 ng/mL (0.000-0.034)
== END 2025-04-20 21:20 | disposition home or self-care (01) ==
PROVIDERS: Emergency Medicine; Emergency Provider Emergency Medicine
DX: D57.00 Hb-SS disease with crisis, unspecified (principal)
CPT/HCPCS: 36415; 71275; 80053; 83690; 83880; 84484; 85025; 85046; 85380; 85610; 85730; 93005; 96361; 96374; 99284; A9270; J2270; J7030; Q9967

== ENCOUNTER 2025-05-25 02:24 | Emergency (ER) | payer OTHER, SELFPAY ==
[2025-05-25] VITALS (29 sets, daily range): BP systolic 107–135; BP diastolic 49–61; PULSE 59–90; RESP 10–25; O2SAT 94–100
--- NOTE | ~2025-05-25 | XR_ITS ---
Examination: XR chest 1V portable Clinical History: sickle cell crisis Comparison: 04/18/2025 Technique: Portable AP Findings: Heart size enlarged likely on basis of portable technique. Lungs clear. No acute bony abnormality. IMPRESSION: 1. No acute cardiopulmonary findings given portable technique. Reviewed, dictated and finalized at location R.
--- NOTE | 2025-05-25 02:32 | ECG_ITS ---
Test Date: 2025-05-25 02:34:52 Measurements Intervals [place] Rate: 72 P: 40 MA: 224 QRS: 43 QRSD: 93 T: 36 QT: 423 QTc: 465 Interpretive Statements SINUS RHYTHM WITH FIRST DEGREE AV BLOCK Electronically Signed On 05-25-2025 20:49:05 CDT by Timo Marmolejo D.O
[2025-05-25] MEDS: HYDROmorphone HCL INJ (*CRX) 1 MG/ML SYR 0.5 MG IV PUSH ×4 (02:42→07:03)
[2025-05-25] MEDS: ONDANSETRON INJ 4 MG/2 ML VIAL IV PUSH (02:42)
[2025-05-25] MEDS: SODIUM CHLORIDE 0.9% IV 1,000 ML 999 ML IV CONT (02:43)
[2025-05-25 03:07] LABS: Alanine Aminotransferase 40 U/L (6-50); Albumin Level 4.3 g/dL (3.5-5.1); Alkaline Phosphatase 86 U/L (38-126); Anion Gap 9 mmol/L (4-12); Aspartate Amino Transferase 159 U/L (17-59); Bilirubin,Total 2.3 mg/dL (0.2-1.3); Blood Urea Nitrogen 11 mg/dL (9-20); Calcium 8.6 mg/dL (8.4-10.2); Carbon Dioxide 22 mmol/L (22-30); Chloride 105 mmol/L (98-107); Estimated CRCL calculation 112 ml/min; Estimated Glomerular Filt Rate > 60; Glucose 101 mg/dL (65-110); Magnesium 1.8 mg/dL (1.6-2.3); Potassium 3.4 mmol/L (3.4-5.0); Sodium 136 mmol/L (137-145); Total Protein 7.5 g/dL (6.3-8.2)
[2025-05-25 03:18] LABS: Hematocrit 28.0 % (42.0-52.0); Hemoglobin 10.6 g/dL (14.0-18.0); Immature Granulocyte Percent A 0.2 % (0-0.5); Immature Reticulocyte Fraction 21.2 % (3.0-15.9); Lymphocytes Absolute Auto 2.15 K/mm3 (0.9-3.2); Mean Corpuscular HGB Conc 37.9 g/dl (32-36); Mean Corpuscular Hemoglobin 33.5 pg (26-34); Mean Corpuscular Volume 88.6 fl (80-100); Nucleated Red Blood Cells Absolute Auto 0.020 K/mm3 (0.0-0.012); Nucleated Red Blood Cells Perc 0.2 % (0.0-0.2); Platelet Count Result 312 k/mm3 (150-375); Red Blood Count 3.16 M/mm3 (4.6-6.20); Reticulocyte Hemoglobin Conten 32.4 pg (28.2-36.6); Reticulocytes Absolute 0.18 10^6/uL (0.02-0.10); White Blood Count 8.6 K/mm3 (4.5-10.0)
[2025-05-25 03:31] LABS: Anisocytosis 1+; Hypochromasia 1+; Schistocytes None Seen; Stomatocytes Occasional; Target Cells 2+
[2025-05-25] MEDS: ACETAMINOPHEN 500 MG TABLET 1000 MG PO (04:15)
[2025-05-25] MEDS: FAMOTIDINE 20 MG/2 ML VIAL IV PUSH (04:17)
[2025-05-25] MEDS: KETOROLAC 15 MG/ML VIAL (*BKC) IV PUSH (04:18)
--- NOTE | 2025-05-25 05:43 | ED.GENADULT ---
HPI - General Adult General Chief complaint: Unspecified Stated complaint: sickle cell pain History of Present Illness HPI narrative: Patient is a 19-year-old male who presents to the emergency department this evening complaining of pain all over his body consistent with his sickle cell pain crisis. Denies any specific pain stating that it just hurts everywhere. Patient states that the pain started a few days ago but it was mild and subsided so he did not come to the emergency department, however, it returned today and was more severe so he decided to come to the emergency department for further evaluation. Denies any additional symptoms or concerns. Related Data Allergies Allergy/AdvReac Type Severity Reaction Status Date / Time No Known Allergies Allergy Verified 04/18/25 22:37 Review of Systems Review of Systems: All systems are reviewed and are negative unless stated otherwise in the HPI. Exam Narrative: General: Alert, awake, afebrile, in no acute distress. HEENT: PERRL, no rhinorrhea, no post nasal drip, oropharynx clear. Neck: Trachea midline, no JVD, no lymphadenopathy. Cardiovascular: Regular rate and rhythm, no murmurs, rubs or gallops, no peripheral edema. Respiratory: Clear to auscultation bilaterally, no tachypnea, no wheezing, no rhonchi, no rubs, no respiratory distress. Abdomen: Soft, nontender, nondistended, no rebound, no guarding, no peritoneal signs. Musculoskeletal: No joint swelling or deformity, normal muscle tone. Skin: No rashes or petechia, no signs of infection. Psychiatric: Alert and oriented, normal behavior and judgment for situation. Neurological: Alert and oriented to person, place, and time. Follows all commands. No focal deficits, speech is clear and fluent. Course Vital Signs Vital signs: Vital Signs Pulse Rate 75 05/25/25 02:23 Respiratory Rate 25 H 05/25/25 02:23 Blood Pressure 135/51 L 05/25/25 02:23 Pulse Oximetry 100 05/25/25 02:23 Oxygen Delivery Room Air 05/25/25 02:23 Pulse Rate 88 05/25/25 02:57 Respiratory Rate 12 05/25/25 02:57 Blood Pressure 135/51 L 05/25/25 02:23 Pulse Oximetry 95 05/25/25 02:57 Oxygen Delivery Room Air 05/25/25 02:23 Medical Decision Making MDM Narrative Medical decision making narrative: The patient was evaluated by myself in the emergency department. History is obtained from patient who is an independent historian and physical exam was performed. External medical records were reviewed at this time. IV was established and pertinent tests were ordered. Patient was administered 1 L IV fluid bolus with normal saline, a total of 2 mg of IV Dilaudid, 1 g of oral Tylenol, 15 mg of IV Toradol and 20 mg of IV Pepcid and 4 mg IV Zofran with improvement of his pain. EKG was obtained which revealed sinus rhythm rate of 72 beats per minute, no evidence of acute ischemia. EKG was independently interpreted by me and is currently pending official cardiology read. Laboratory results obtained revealing no acute process. Imaging studies obtained included CXR which was independently interpreted by me revealing no acute process, which is pending final radiology interpretation. Differential diagnosis considerations include sickle cell pain crisis, acute chest syndrome, dehydration, electrolyte derangements. Comorbidities impacting this visit include history of sickle cell anemia. I have evaluated and discussed social determinants of health with the patient that could potentially impact subsequent diagnosis and treatment plans. On repeat assessment of the patient, reevaluation revealed that the patient is doing well and is in no acute distress. Patient symptoms have improved since he arrived to our emergency department. Repeat vital signs were all reviewed and noted to be stable. Differential diagnosis and treatment plan were discussed with the patient at bedside. Patient agrees with discussion and after shared medical decision making agrees with discharge. All questions were answered to the patient's satisfaction. Patient will follow up with his tower air traffic control specialist in 3-5 days. Patient was provided with strict return precautions and instructed to return to the emergency department if any new or worsening symptoms develop. The patient was discharged in stable condition. Vital Signs Vital Signs: Vital Signs Pulse Rate 75 05/25/25 02:23 Respiratory Rate 25 H 05/25/25 02:23 Blood Pressure 135/51 L 05/25/25 02:23 Pulse Oximetry 100 05/25/25 02:23 Oxygen Delivery Room Air 05/25/25 02:23 Pulse Rate 88 05/25/25 02:57 Respiratory Rate 12 05/25/25 02:57 Blood Pressure 135/51 L 05/25/25 02:23 Pulse Oximetry 95 05/25/25 02:57 Oxygen Delivery Room Air 05/25/25 02:23 Lab Data 05/25/25 02:39 05/25/25 02:39 Labs: Lab Results 05/25/25 Range/Units 02:39 WBC 8.6 (4.5-10.0) K/mm3 RBC 3.16 L (4.6-6.20) M/mm3 Hgb 10.6 L (14.0-18.0) g/dL Hct 28.0 L (42.0-52.0) % MCV 88.6 (80-100) fl MCH 33.5 (26-34) pg MCHC 37.9 H (32-36) g/dl RDW 13.4 (11.5-14.5) % Plt Count 312 (150-375) k/mm3 MPV 8.9 (7.4-10.4) fl Immature Gran % (Auto) 0.2 (0-0.5) % Neut % (Auto) 66.1 (45.5-73.1) % Lymph % (Auto) 24.9 (18.3-44.2) % [place] % (Auto) 7.5 (2.6-8.5) % Eos % (Auto) 0.6 (0-4.4) % Baso % (Auto) 0.7 (0.2-1.2) % Lymph # (Auto) 2.15 (0.9-3.2) K/mm3 [place] # (Auto) 0.7 H (0.1-0.6) K/mm3 Eos # (Auto) 0.1 (0-0.3) K/mm3 Baso # (Auto) 0.1 (0.0-0.1) K/mm3 Abs Immat Gran (auto) 0.02 (0.00-0.031) K/mm3 Absolute Neuts (auto) 5.7 (1.3-6.7) K/mm3 Absolute Nucleated RBC 0.020 H (0.0-0.012) K/mm3 Band Neutrophils % Not Reportable Nucleated RBC % 0.2 (0.0-0.2) % Platelet Estimate Adequate (Adequate) Hypochromasia 1+ Anisocytosis 1+ Target Cells 2+ Stomatocytes Occasional Schistocytes None seen Absolute Retic 0.18 H (0.02-0.10) 10^6/uL Percent Retic 5.78 H (0.7-4.3) % Immature Retic Fraction 21.2 H (3.0-15.9) % Retic Hgb Content 32.4 (28.2-36.6) pg Sodium 136 L (137-145) mmol/L Potassium 3.4 (3.4-5.0) mmol/L Chloride 105 (98-107) mmol/L Carbon Dioxide 22 (22-30) mmol/L Anion Gap 9 (4-12) mmol/L BUN 11 (9-20) mg/dL Creatinine 0.89 (0.7-1.3) mg/dL Estim Creat Clear Calc 112 ml/min Estimated GFR > 60 (59 - ) Glucose 101 (65-110) mg/dL Calcium 8.6 (8.4-10.2) mg/dL Magnesium 1.8 (1.6-2.3) mg/dL Total Bilirubin 2.3 H (0.2-1.3) mg/dL AST 159 H (17-59) U/L ALT 40 (6-50) U/L Alkaline Phosphatase 86 (38-126) U/L Total Protein 7.5 (6.3-8.2) g/dL Albumin 4.3 (3.5-5.1) g/dL Discharge Plan Discharge Clinical Impression: Sickle cell pain crisis Patient Disposition: Home Condition: Improved Instructions: Antibiotic Form, Sickle Cell Crisis (ED) Additional Instructions: Please follow-up with your family doctor/ tower air traffic control specialist within the next 3-5 days. Return to the ED if any new or worsening symptoms develop. Patient Language: Bulgarian Follow-up/Referrals: PHYSICIAN,CLERK MANAGER [Primary Care Provider, Internal Medicine] Sukumar Sandra MD [Physician, Family Practice] - 3 Days Time of Disposition: 05:44
== END 2025-05-25 07:22 | disposition home or self-care (01) ==
PROVIDERS: Emergency Provider Emergency Medicine
DX: D57.00 Hb-SS disease with crisis, unspecified (principal); I44.0 Atrioventricular block, first degree
CPT/HCPCS: 36415; 71045; 80053; 83735; 85025; 85046; 93005; 96361; 96374; 96375; 96376; 99284; A9270; J1171; J1885; J2405; J7030

== ENCOUNTER 2025-05-25 07:32 | Observation (INO) | payer OTHER, SELFPAY ==
[2025-05-25] VITALS (14 sets, daily range): BP systolic 94–142; BP diastolic 45–89; PULSE 60–84; RESP 14–20; TEMP 36.1–36.8; O2SAT 97–100; BMI 24.0
--- NOTE | ~2025-05-25 | US_ITS ---
EXAMINATION: US venous doppler [facility], 05/25/2025 16:01 CDT HISTORY: +Homans COMPARISON: None Technique: Reyes-scale and color Doppler images were attempted of the lower saphenofemoral junction, common femoral vein,superficial femoral vein, proximal deep femoral vein, proximal deep femoral vein, popliteal vein and posterior tibial veins. Findings: Deep Venous System:Normal flow, augmentation and compressibility. No echogenic thrombus identified. Superficial Venous SystemNo superficial thrombophlebitis. Soft tissues: Soft tissues are unremarkable. Impression: Negative for DVT. Reviewed, dictated and finalized at location P. Impression: Negative for DVT.
--- NOTE | ~2025-05-25 | CT_ITS ---
CTA CHEST CLINICAL HISTORY: chest pain . COMPARISON: X-ray same day CTA chest 04/20/2025 TECHNIQUE: Helical CTA performed from thoracic inlet to upper abdomen IV contrast information not listed in PACS Coronal, sagittal reformats. Multiplanar MIPS CT images acquired with automatic exposure control for dose reduction DLP: 335 mGy-cm FINDINGS: Basilar predominant motion artifact. Pulmonary arteries: No PE. Thoracic Aorta: No dissection or aneurysm. Heart/pericardium: Unremarkable. RV/LV ratio: Normal. Lungs/Pleura: Clear. Tracheobronchial tree: Patent. Nodes: No enlarged nodes. Bones: No acute bony abnormality. Soft tissues: Unremarkable. Visualized upper abdomen: Hepatomegaly, with steatosis. IMPRESSION: 1. No PE or other acute cardiopulmonary findings. Reviewed, dictated and finalized at location R.
--- OUTSIDE RECORDS SUMMARY | 2025-05-25 07:35 | XMS_ITS | Clinical Summary ---
Author Organization [facility] Address [address] [place] [address] Care Team Providers Care Snubber Name Role Phone Vik Salvador MD Primary Care Provider [phone] Doris Delaney MD Unavailable Allergies No known [...] Date Resolved Date Sickle cell pain crisis 10/17/2024/2 08/2024 Encounters Date Type Department Care Team Description 04/21/2025 10:11 PM CDT - 04/21/2025 11:21 PM CDT Emergency [facility] Medicine [facility] Emergency Department [address] [place] [phone] Discharge Disposition: Left Against Medical Advice or Discontinued Care 04/21/2025 Travel 04/11/2025 Telephone [facility] Hematology Oncology at [address] [place] [phone] Xi Carter RN 04/11/2025 Telephone [facility] Hematology Oncology at [address] [place] [address] [phone] Xi Carter RN 04/07/2025 2:15 PM CDT Office Visit [facility] Hematology Oncology at [address] [phone] Doris Delaney MD 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 Never 12/26/2024 [facility] Food Security Answer Date Recorded Within the past 12 months, t he food you bought just didn't last and you didn't have money to get more. 3 12/26/2024 Within the past 12 months, y ou worried that your food would run out before you got money to buy more. 3 12/26/2024 [facility] Transportation Needs Answer Date Re corded In the past 12 months, has l ack of reliable transportation kept you from medical appointments, meetings, work or from getting things needed for daily living? No 12/26/2024 [facility] Housing Answer Date Recorded What is your living situation today? I have a [facility] place to live 12/26/[address] you li ve. Do you have problems with any of the following? None of the above 12/26/2024 [facility] Safety Answer Date Recorded How often [...] scream or curse at you? 1 12/26/2024 [facility] Utilities Answer Date Recorded In the past 12 months has th e electric, gas, oil, or water company threatened to shut off services in your home? No 12/26/2024 Sex and Gender Information Value Date Recorded Sex Assigned at Male 05/01/2025 12:56 PM EDT Legal Sex Male 3:30 AM EST Gender Identity Not on file Sexual Orientation Not on file Last Filed Vital Signs Vital Sign Reading Time Taken Comments Blood Pressure 130/62 04/21/2025 10:26 PM CDT Pulse 64 04/21/2025 10:26 PM CDT Temperature 36.3 C (97.4 F) 04/21/2025 10:26 PM CDT Respiratory Rate 16 04/21/2025 10:26 PM CDT Oxygen Saturation 100% 04/21/2025 10:26 PM CDT Inhaled Oxygen Concentration - - Weight 72.6 kg (160 lb) 04/21/2025 10:26 PM CDT Height 172.7 cm (5' 7.99) 04/07/2025 2:10 PM CD T Body Mass Index 24.33 04/07/2025 2:10 PM CDT Plan of Treatment Upcoming Encounters Date Type Department Care Team (Late st Contact Info) Description 05/30/2025 11:00 AM CDT Consult [facility] Heart [facility] Vascular [address] [place] [phone] Leland Lopez MD [address] [place] [address] [place] [address] [phone] 06/23/2025 9:45 AM CDT Office Visit [facility] Hematology Oncology at [place] [address] [facility] [address] [place] [phone] Doris Delaney MD [address] [facility] [address] [place] [address] Health Maintenance Due Date Last Done [...] on patient's age to complete this topic Procedures Procedure Name Priority Date/Time Associated Diagnosis Comments XR CHEST 2 VIEWS STAT 04/21/2025 10:4 5 PM CDT ECG 12-LEAD STAT 04/21/2025 10:32 PM CDT from Last 3 Months Results * XR Chest 2 Views (04/21/2025 10:45 PM CDT) Anatomical Region Laterality Modality Chest N/A Digital Radiogra phy Narrative 04/21/2025 11:07 PM CDT Provided indication: CHEST PAIN Comparison: Chest radiograph 12/26/2024 Findings: Frontal and lateral views were performed. The heart is within normal limits for size. No focal consolidation, pleural effusion or pneumothorax. Impression: No acute cardiopulmonary abnormality. Created by: Sanjeev Crooks MD Signed by: Sanjeev Crooks MD Signed on: 04/21/2025 11:07 PM Location: [address] Procedure Note Sanjeev Crooks MD - 04/21/2025 Provided indication: CHEST PAIN Comparison: Chest radiograph 12/26/2024 Findings: Frontal and lateral views were performed. The heart is within normal limits for size. No focal consolidation,pleural effusion or pneumothorax. Impression: No acute cardiopulmonary abnormality. Created by: Sanjeev Crooks MD Signed by: Sanjeev Crooks MD Signed on: 04/21/2025 11:07 PM Location: [address] Justin Dunn PA-C IMG XR PROCEDURES Final R esult * ECG 12 lead (04/21/2025 10:32 PM CDT) 04/21/2025 10:3 2 PM CDT Narrative FRANK LIAO - 04/22/2025 8:00 AM CDT [facility] og Test Date: 2025-04-21 Pat Name: COLEMAN STEWARD Department: [address] Room: (STAT) Gender: Male Digital Program Manager: : 2005 Requested By: EDWARDO OMER Order Number: [id number] Calin GHOSH: Henry Campoverde Measurements Intervals Lapel Rate: 52 P: 30 FL: 231 QRS: 50 QRSD: 96 T: 30 QT: 432 QTc: 405 Interpretive Statements SINUS BRADYCARDIA WITH FIRST DEGREE AV BLOCK ATYPICAL EARLY REPOLARIZATION ABNORMAL ECG Electronically Signed On 04-22-2025 8:00:36 CDT by Henry Campoverde Procedure Note Henry Campoverde MD - 04/22/2025 [facility] og Test Date: 2025-04-21 Pat Name: COLEMAN STEWARD Department: [address] Room: (STAT) Gender: Male Digital Program Manager: : 2005 Requested By: EDWARDO OMER Order Number: [id number] Calin Campoverde Measurements Intervals Lapel Rate: 52 P: 30 FL: 231 QRS: 50 QRSD: 96 T: 30 QT: 432 QTc: 405 Interpretive Statements SINUS BRADYCARDIA WITH FIRST DEGREE AV BLOCK ATYPICAL EARLY REPOLARIZATION ABNORMAL ECG Electronically Signed On 04-22-2025 8:00:36 CDT by Henry Campoverde us Edwardo Omer MD ECG ORDERABLES Final Res ult FRANK LIAO from Last 3 Months Insurance [facility] MEDICAID Advance Directives * Full Code (Latest Code Status on File) Date Activated Date Inactivated Comments 12/26/2024 3:57 AM 12/27/2024 10:08 PM * Full Code Date Activated Date Inactivated Comments 10/20/2024 10:48 PM 10/21/2024 9:29 PM * Full Code Date Activated Date Inactivated Comments 10/18/2024 12:37 AM 10/18/2024 9:22 PM Care Teams Snubber Relationship Specialty Start Date End Date Vik Salvador MD PCP - General Pediatrics 10/17/24 Doris Delaney MD [address] [place] [address] Consulting Physician Hematology and Oncology 04/01/25
--- OUTSIDE RECORDS SUMMARY | 2025-05-25 07:35 | XMS_ITS | Clinical Summary ---
Author Organization [facility] Address [address] [place] [address] Care Team Providers Care Structures Engineer Name Role Phone Pcp, No Primary Care [...] Standard) 2020 COVID-19 Vaccine (3 - season) 2025 02/02/2021, 01/12/2021 Influenza Vaccine (#1) 2025 DTaP/Tdap/Td [...] to complete this topic Insurance [id number] (Work) [id number] [place] [address] [facility] Care Teams Structures Engineer Relationship Specialty Start Date End Date Pcp, No PCP - General 04/15/23
--- OUTSIDE RECORDS SUMMARY | 2025-05-25 07:35 | XMS_ITS | Clinical Summary ---
Author Organization [facility] Address [address] [place] [address] Care Team Providers Care Cabin Outfitter Name Role Phone Unavailable Primary Care Provider Unavailabl e Allergies No known active allergies Medications No known medications Social History Tobacco Use Types Packs/Day Years Used Date Smoking Tobacco: Never Assessed Sex and Gender Information Value Date Recorded Sex Assigned at Not on file Legal Sex Male 9:28 PM TOUR BUS DRIVER/GUIDE Gender Identity Not on file Sexual Orientation Not on file Last Filed Vital Signs Vital Sign Reading Time Taken Comments Blood Pressure 104/55 07/08/2024 1:53 AM TOUR BUS DRIVER/GUIDE Pulse 96 07/07/2024 9:31 PM TOUR BUS DRIVER/GUIDE Temperature 37.1 C (98.7 F) 07/07/2024 9:31 PM TOUR BUS DRIVER/GUIDE Respiratory Rate 16 07/07/2024 10:22 PM TOUR BUS DRIVER/GUIDE Oxygen Saturation 98% 07/08/2024 1:53 AM TOUR BUS DRIVER/GUIDE Inhaled Oxygen Concentration - - Weight 52.2 kg (115 lb) 07/07/2024 9:31 PM TOUR BUS DRIVER/GUIDE Height 177.8 cm (5' 10) 07/07/2024 9:31 PM TOUR BUS DRIVER/GUIDE Body Mass Index 16.5 07/07/2024 9:31 PM TOUR BUS DRIVER/GUIDE Plan of Treatment Health Maintenance Due Date [...] COVID-19 Vaccine (1 - 2023-2 5 season) 2025 INFLUENZA VACCINE 04/28/2025 ZOSTER VACCINES (1 of [...] to complete this topic [place] [id number]
--- OUTSIDE RECORDS SUMMARY | 2025-05-25 08:10 | XMS_ITS | Clinical Summary ---
Author Organization [facility] Address [address] [place] [address] Care Team Providers Care Transit Proof Machine Operator Name Role Phone Unavailable Primary Care Provider Unavailabl e Allergies No known active allergies Medications No known medications Social History Tobacco Use Types Packs/Day Years Used Date Smoking Tobacco: Never Assessed Sex and Gender Information Value Date Recorded Sex Assigned at Not on file Legal Sex Male 9:28 PM CHIP BIN OPERATOR Gender Identity Not on file Sexual Orientation Not on file Last Filed Vital Signs Vital Sign Reading Time Taken Comments Blood Pressure 104/55 07/08/2024 1:53 AM CHIP BIN OPERATOR Pulse 96 07/07/2024 9:31 PM CHIP BIN OPERATOR Temperature 37.1 C (98.7 F) 07/07/2024 9:31 PM CHIP BIN OPERATOR Respiratory Rate 16 07/07/2024 10:22 PM CHIP BIN OPERATOR Oxygen Saturation 98% 07/08/2024 1:53 AM CHIP BIN OPERATOR Inhaled Oxygen Concentration - - Weight 52.2 kg (115 lb) 07/07/2024 9:31 PM CHIP BIN OPERATOR Height 177.8 cm (5' 10) 07/07/2024 9:31 PM CHIP BIN OPERATOR Body Mass Index 16.5 07/07/2024 9:31 PM CHIP BIN OPERATOR Plan of Treatment Health Maintenance Due Date [...]
--- OUTSIDE RECORDS SUMMARY | 2025-05-25 08:10 | XMS_ITS | Clinical Summary ---
Author Organization [facility] Address [address] [place] [address] Care Team Providers Care Food And Beverage Lead Name Role Phone Vik Salvador MD Primary [...] CDT - 04/21/2025 11:21 PM CDT Emergency [facility] Medicine [facility] Emergency Department [address] [place] [phone] Discharge Disposition: Left Against Medical Advice or Discontinued Care 04/21/2025 Travel 04/11/2025 Telephone [facility] Hematology Oncology at [address] [place] [address] [phone] Xi Carter RN 04/11/2025 Telephone [facility] Hematology Oncology at [address] [place] [address] [phone] Xi Carter RN 04/07/2025 2:15 PM CDT Office Visit [facility] Hematology Oncology at [address] [phone] Doris Delaney MD 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 Never 12/26/2024 [facility] Food Security Answer Date Recorded Within the past 12 months, t he food you bought just didn't last and you didn't have money to get more. 3 12/26/2024 Within the past 12 months, y ou worried that your food would run out before you got money to buy more. 3 12/26/2024 [facility] Transportation Needs Answer Date Re corded In the past 12 months, has l ack of reliable transportation kept you from medical appointments, meetings, work or from getting things needed for daily living? No 12/26/2024 [facility] Housing Answer Date Recorded What is your living situation today? I have a [facility] place to live 12/26/[address] you li ve. Do you have problems with any of the following? None of the above 12/26/2024 [facility] Safety Answer Date Recorded How often [...] scream or curse at you? 1 12/26/2024 [facility] Utilities Answer Date Recorded In the [...] Info) Description 05/30/2025 11:00 AM CDT Consult [facility] Heart and Vascular [address] [place] [phone] Leland Lopez MD [address] [place] [address] [place] [address] [phone] 06/23/2025 9:45 AM CDT Office Visit [facility] Hematology Oncology at [place] [address] [facility] [address] [place] [phone] Doris Delaney MD [address] [facility] [address] [place] [address] Health Maintenance Due Date Last Done [...] Signed on: 04/21/2025 11:07 PM Location: [address] Procedure Note Sanjeev Crooks MD - 04/21/2025 Provided indication: CHEST PAIN Comparison: Chest radiograph 12/26/2024 Findings: Frontal and lateral views were performed. The heart is within normal limits for size. No focal consolidation,pleural effusion or pneumothorax. Impression: No acute cardiopulmonary abnormality. Created by: Sanjeev Crooks MD Signed by: Sanjeev Crooks MD Signed on: 04/21/2025 11:07 PM Location: [address] Justin Dunn PA-C IMG XR PROCEDURES Final R esult * ECG 12 lead (04/21/2025 10:32 PM CDT) 04/21/2025 10:3 2 PM CDT Narrative FRANK LIAO - 04/22/2025 8:00 AM CDT [facility] og Test Date: 2025-04-21 Pat Name: COLEMAN STEWARD Department: [address] Room: (STAT) Gender: Male Airline Stewardess: : 2005 Requested By: EDWARDO OMER Order Number: [id number] Calin GHOSH: Henry Campoverde Measurements Intervals [place] Rate: 52 P: 30 SC: 231 QRS: 50 QRSD: 96 T: 30 QT: 432 QTc: 405 Interpretive Statements SINUS BRADYCARDIA WITH FIRST DEGREE AV BLOCK ATYPICAL EARLY REPOLARIZATION ABNORMAL ECG Electronically Signed On 04-22-2025 8:00:36 CDT by Henry Campoverde Procedure Note Henry Campoverde MD - 04/22/2025 [facility] og Test Date: 2025-04-21 Pat Name: COLEMAN STEWARD Department: [address] Room: (STAT) Gender: Male Airline Stewardess: : 2005 Requested By: EDWARDO OMER Order Number: [id number] Calin Campoverde Measurements Intervals [place] Rate: 52 P: 30 SC: 231 QRS: 50 QRSD: 96 T: 30 QT: 432 QTc: 405 Interpretive Statements SINUS BRADYCARDIA WITH FIRST DEGREE AV BLOCK ATYPICAL EARLY REPOLARIZATION ABNORMAL ECG Electronically Signed On 04-22-2025 8:00:36 CDT by Henry Campoverde us Edwardo Omer MD ECG ORDERABLES Final Res ult FRANK LIAO from Last 3 Months Insurance [facility] MEDICAID Advance Directives * Full Code (Latest Code Status on File) Date Activated Date Inactivated Comments 12/26/2024 3:57 AM 12/27/2024 10:08 PM * Full Code Date Activated Date Inactivated Comments 10/20/2024 10:48 PM 10/21/2024 9:29 PM * Full Code Date Activated Date Inactivated Comments 10/18/2024 12:37 AM 10/18/2024 9:22 PM Care Teams Food And Beverage Lead Relationship Specialty Start Date End Date Vik Salvador MD PCP - General Pediatrics 10/17/24 Doris Delaney MD [address] [place] [phone] Consulting Physician Hematology and Oncology 04/01/25
--- OUTSIDE RECORDS SUMMARY | 2025-05-25 08:10 | XMS_ITS | Clinical Summary ---
Author Organization [facility] Address [address] [place] [address] Care Team Providers Care Tree Climber Name Role Phone Pcp, No Primary Care [...] to complete this topic Insurance [id number] (Work) [id number] [place] [address] [facility] Care Teams Tree Climber Relationship Specialty Start Date End Date Pcp, No PCP - General 04/15/23
--- OUTSIDE RECORDS SUMMARY | 2025-05-25 08:10 | XMS_ITS | Clinical Summary ---
Author Organization [facility] Team My Mobile Address [address] [place] [address] Care Team Providers Care Zanjero Name Role Phone Unavailable Primary Care Provider Unavailabl e Source Comments [facility],non-owned Affiliates and Associated Physician Practices is amultiple site organization consisting of ambulatory clinics and hospital sitesin [place], [place], [place] and [place]. This disclosure is being madepursuant to the Care Everywhere program and may not contain all information available regarding this patient. Last updated 18.[facility] Allergies No known active allergies Medications * Be aware that medications may not be up to date on this document. Alwaysverify current medications with the patient. HYDROcodone-acet aminophen ([place]) 5-325 MG tablet Take 1 (one) tablet [...] CDT Hospital Encounter [facility] [address] [place] [address] Nuvia Charles MD Sampath, Roshni, [...] VACCINE (1 of 2 - PCV) 2023 DEPRESSION SCREENING 08/28/2024 COVID-19 VACCINE (1 - season) 2025 INFLUENZA VACCINE (#1) 2025 ZOSTER VACCINE (1 of 2) 2054 Procedures Procedure Name Priority Date/Time Associated Diagnosis Comments CARDIAC RHYTHM STRIP ORDER 04/21/2025 9:32 PM CDT EKG 12-LEAD Routine 04/19/2025 12:16 PM CDT Sickle cell disease with crisis and other complication (HCC) TROPONIN-I HIGH SENSITIVE STAT 04/19/2025 10:16 AM CDT Sickle cell disease with crisis and other complication (HCC) BASIC METABOLIC PANEL (CALCIUM TOTAL) STAT 04/19/2025 10:16 AM CDT Sickle cell disease with crisis and other complication (HCC) CBC W AUTO DIFFERENTIAL STAT 04/19/2025 10:16 AM CDT Sickle cell disease with crisis and other complication (HCC) from Last 3 Months Results * CARDIAC RHYTHM STRIP ORDER (04/21/2025 9:32 PM CDT) Narrative 04/21/2025 9:32 PM CDT Ordered by an unspecified provider. us Scanned Document CARDIAC SERVICES ORDERABLES Fin al Result * EKG 12-LEAD (04/19/2025 12:16 PM CDT) Ventricular Rate 67 BPM [facility] Atrial Rate 67 BPM [facility] P-R Interval 236 ms [facility] QRS Duration ms 90 ms [facility] Q-T Interval ms 410 ms [facility] QTC Calculation (Bezet) 433 ms [facility] Calculated P [place]iot[place] 35 degrees [facility] Calculated R Niotaze 38 degrees [facility] Calculated T [place]iotaze 27 degrees [facility] Interpretation EKG Sinus rhythm with 1st degree A-V block Otherwise normal ECG No previous ECGs available Confirmed by JACEY DALY MD ([id number]) on 04/22/2025 9:05:30 AM [facility] MUSE 04/19/2025 12:1 6 PM CDT 04/22/2025 9:05 AM CDT us Theresa Art MD ECG ORDERABLES Edited Result - Final [facility] * TROPONIN-I HIGH SENSITIVE (04/19/2025 10:16 AM CDT) Pathologist [facility] Troponin I High Sensitive 6 <=35 ng/L 04/19/2025 10:52 AM CDT [facility] Blood BLOOD SPECIMEN / Unknown Venipuncture / Unknown 04/19/2025 10:16 AM CDT 04/19/2025 10:28 AM CDT us Theresa Art MD LAB - CHEMISTRY ORDERABLES Fin al Result [facility] [address] [place] [address] * (ABNORMAL) CBC W AUTO DIFFERENTIAL (04/19/2025 10:16 AM CDT) WBC 6.5 4.0 - 10.7 x10E9/L 04/19/2025 11:31 AM CDT [facility] RBC Count 3.14(L) 4.30 - 5.80 x10E12/L 04/19/2025 11:31 AM CDT [facility] Hemoglobin 10.5(L) 13.3 - 17.5 g/dL 04/19/2025 11:31 AM CDT [facility] Hematocrit 28.1(L) 38.7 - 51.1 % 04/19/2025 11:31 AM CDT [facility] MCV 89.5 80.0 - 98.0 fL 04/19/2025 11:31 AM CDT [facility] MCH 31.3 26.7 - 33.6 pg 04/19/2025 11:31 AM CDT [facility] MCHC 35.6 31.7 - 36.3 g/dL 04/19/2025 11:31 AM CDT [facility] RDW-CV 13.8 11.3 - 14.8 % 04/19/2025 11:31 AM CDT [facility] Platelet Count 306 150 - 420 x10E9/L 04/19/2025 11:31 AM CDT [facility] MPV 8.9 7.8 - 11.4 fL 04/19/2025 11:31 AM CDT [facility] Neutrophil % 58.1 41.0 - 74.0 % 04/19/2025 11:31 AM CDT [facility] Lymphocyte % 30.4 17.0 - 47.0 % 04/19/2025 11:31 AM CDT [facility] Monocyte % 7.8 3.0 - 11.0 % 04/19/2025 11:31 AM CDT [facility] Eosinophil % 2.6 0.0 - 7.0 % 04/19/2025 11:31 AM CDT [facility] Basophil % 0.9 0.0 - 1.6 % 04/19/2025 11:31 AM CDT [facility] Immature Granulocytes % 0.2 0.0 - 1.0 % 04/19/2025 11:31 AM CDT [facility] Neutrophil Absolute 3.80 1.60 - 7.50 x10E9/L 04/19/2025 11:31 AM CDT [facility] Lymphocyte Absolute 1.99 1.00 - 4.40 x10E9/L 04/19/2025 11:31 AM CDT [facility] Monocyte Absolute 0.51 0.15 - 1.00 x10E9/L 04/19/2025 11:31 AM CDT [facility] Eosinophil Absolute 0.17 0.00 - 0.60 x10E9/L 04/19/2025 11:31 AM CDT [facility] Basophil Absolute 0.06 0.00 - 0.13 x10E9/L 04/19/2025 11:31 AM CDT [facility] NRBC 0.6(H) <=0.0 /100 WBC 04/19/2025 11:31 AM CDT [facility] Blood BLOOD SPECIMEN / Unknown Venipuncture / Unknown 04/19/2025 10:16 AM CDT 04/19/2025 10:28 AM CDT us Theresa Art MD LAB - HEMATOLOGY ORDERABLES Fi nal Result [facility] [address] [place] [address] * (ABNORMAL) BASIC METABOLIC PANEL (CALCIUM TOTAL) (04/19/2025 10:16 AM CDT) [facility] Glucose 91 70 - 99 mg/dL 04/19/2025 10:48 AM CDT [facility] Sodium 142 136 - 145 mmol/L 04/19/2025 10:48 AM CDT [facility] Potassium 4.1 3.5 - 5.1 mmol/L 04/19/2025 10:48 AM CDT [facility] Chloride 110(H) 98 - 107 mmol/L 04/19/2025 10:48 AM CDT [facility] CO2 25 22 - 29 mmol/L 04/19/2025 10:48 AM CDT [facility] Calcium 8.9 8.4 - 10.4 mg/dL 04/19/2025 10:48 AM CDT [facility] Anion Gap 7 6 - 16 mmol/L 04/19/2025 10:48 AM CDT [facility] BUN 9 5.3 - 18.7 mg/dL 04/19/2025 10:48 AM CDT [facility] Creatinine 0.81 0.72 - 1.25 mg/dL 04/19/2025 10:48 AM CDT [facility] eGFR by CKD-EPI >90 >=90 mL/min/1.7 3 m2 04/19/2025 10:48 AM CDT [facility] Comment:Estimated Glomerular Filtration Rate (eGFR) calculated using the CKD-EPI Creatinine Equation (2020), per the National Kidney Foundation and [place] [employer]ph[employer] recommendations. Blood BLOOD SPECIMEN / Unknown Venipuncture / Unknown 04/19/2025 10:16 AM CDT 04/19/2025 10:28 AM CDT us Theresa Art MD LAB - CHEMISTRY ORDERABLES Fin al Result [facility] [address] [place] [phone] from Last 3 Months Insurance [facility] Advance Directives * Full Code (Latest Code Status on File) Date Activated Date Inactivated Comments 04/19/2025 9:37 AM 04/20/2025 1:42 PM
--- NOTE | 2025-05-25 08:28 | ED_ITS ---
HPI - General Adult General Chief complaint: Unspecified Stated complaint: dizzy, lightheaded, wanting more pain medication Time Seen by Provider: 05/25/25 07:35 History of Present Illness HPI narrative: Patient is a 19-year-old male who presents ER with sickle cell pain crisis. He is having diffuse aching pains, mildly in the chest. Evaluated last night and discharged home. After discharge his pain returned and he felt like he could not return home so he checked back in. No dyspnea. No fevers or chills. He has a outpatient coding specialist [facility]. No exertional chest discomfort. No cough or fever. Related Data Allergies Allergy/AdvReac Type Severity Reaction Status Date / Time No Known Allergies Allergy Verified 04/18/25 22:37 Review of Systems Review of Systems: All systems reviewed & are unremarkable except as noted in HPI and below Constitutional: Constitutional: Reports no additional constitutional complaints Cardiovascular: Cardiovascular: Reports no additional cardiovascular complaints Respiratory: Respiratory: Reports no additional respiratory complaints Gastrointestinal: Gastrointestinal: Reports no additional gastrointestinal complaints [facility] Past Medical History Medical History (Updated 05/25/25 @ 08:45 by Jack Villanueva MD) Sickle cell anemia Surgical History Surgical History (Updated 05/25/25 @ 08:44 by Jack Villanueva MD) No pertinent past surgical history Exam Narrative: GENERAL: Well-appearing, well-nourished, and in no acute distress. HEAD: Normocephalic, atraumatic. ENT: Mucous membranes moist. CHEST: Clear to auscultation. No respiratory distress. HEART: Regular rate and rhythm. Normal peripheral pulses. ABDOMEN: Soft, nontender, nondistended. EXTREMITIES: Normal range of motion. No edema. SKIN: Warm, dry, no rash. NEURO: Alert and oriented x3. PSYCH: Normal mood and affect. Course Course Emergency Course: Admit to hospitalist service. Will start on oxygen and IV fluids. Dilaudid for pain control. Vital Signs Vital signs: Vital Signs Temperature 97.9 F 05/25/25 07:36 Pulse Rate 70 05/25/25 07:36 Respiratory Rate 20 05/25/25 07:36 Blood Pressure 142/89 H 05/25/25 07:36 Pulse Oximetry 100 05/25/25 07:36 Oxygen Delivery Room Air 05/25/25 07:36 Temperature 97.9 F 05/25/25 07:36 Pulse Rate 70 05/25/25 07:36 Respiratory Rate 20 05/25/25 07:36 Blood Pressure 142/89 H 05/25/25 07:36 Pulse Oximetry 100 05/25/25 07:36 Oxygen Delivery Room Air 05/25/25 07:36 Medical Decision Making Vital Signs Vital Signs: Vital Signs Temperature 97.9 F 05/25/25 07:36 Pulse Rate 70 05/25/25 07:36 Respiratory Rate 20 05/25/25 07:36 Blood Pressure 142/89 H 05/25/25 07:36 Pulse Oximetry 100 05/25/25 07:36 Oxygen Delivery Room Air 05/25/25 07:36 Temperature 97.9 F 05/25/25 07:36 Pulse Rate 70 05/25/25 07:36 Respiratory Rate 05/25/25 07:36 Blood Pressure 142/89 H 05/25/25 07:36 Pulse Oximetry 100 05/25/25 07:36 Oxygen Delivery Room Air 05/25/25 07:36 Discharge Plan Discharge Clinical Impression: Sickle cell pain crisis Patient Disposition: Still a Patient Condition: Stable Patient Language: Turkmen
--- NOTE | 2025-05-25 08:30 | ECG_ITS ---
Test Date: 2025-05-25 08:39:41 Measurements Intervals [place] Rate: 62 P: 32 LA: 240 QRS: 25 QRSD: 98 T: 28 QT: 475 QTc: 484 Interpretive Statements SINUS RHYTHM WITH FIRST DEGREE AV BLOCK Electronically Signed On 05-25-2025 20:49:18 CDT by Timo Marmolejo D.O
[2025-05-25] MEDS: HYDROmorphone HCL INJ (*CRX) 1 MG/ML SYR IV PUSH (08:39)
[2025-05-25] MEDS: SODIUM CHLORIDE 0.9% IV 1,000 ML 150 ML IV CONT (08:40)
--- NOTE | 2025-05-25 09:17 | ADMGEN ---
This patient, Christoph Wilcox, was admitted to [facility] Surg Room 323-02. Patient/family oriented to hospital policies and general routines including ID bracelet, bed and alarms, visiting hours, pain management, procedures, bathroom and other care routines, personal items, smoking policy, room service/diet, and visiting hours. Information on how to activate the Rapid Response Team has been discussed. Patient/Family are encouraged to report perceived risks to care and to ask questions if they do not understand what they are told or what they should do.
[2025-05-25 10:26] LABS: Troponin I 0.037 ng/mL (0.000-0.034)
[2025-05-25] MEDS: HYDROcodone/acetaminophen (*CRX) 5-325 MG TABLET 1 TAB PO ×2 (10:41→23:44)
[2025-05-25] MEDS: ONDANSETRON INJ 4 MG/2 ML VIAL IV PUSH (11:14)
--- NOTE | 2025-05-25 12:50 | PM.IMHP ---
H&P: HPI History of Present Illness Date/Time: 05/25/25 12:50 Chief Complaint: Chest pain Narrative: 19yo male with with sickle cell disease here for chest pain and shortness of breath. Patient was diagnosed with sickle cell disease around 7yo. He has flares 1-2x/year on average. [place] in this [place] for college. He was first seen in [place] ED for sickle cell pain and had elevated Troponin (peak 0.042) with EKG showing first degree AVB and CTA negative for PE. He was transferred to a tertiary care center. He believes he had an Echo but no stress test. He developed symptoms a few days prior to admission with more diffuse body pain that became more severe. He presented to the ED here. EKG showing sinus rhythm with first degree AVB. CXR clear. Retic count elevated. TBili 2.3 and AST 159. Dilaudid, Zofran, IV fluids, Pepcid, Toradol and Tylenol. He was discharged but he returned a few hours later for persistent pain. He complained of chest pain, nausea, vomiting, nonproductive cough, diffuse pain and feeling stiff, headache and upper abdominal pain. Chest pain left upper chest described as sharp with radiation or diaphoresis. No palpable or pleuritic chest pain. He had calf pain yesterday but better today. No fever, chills. He does use a treadmill for exercise and does not have chest pain with this activity. Vital signs remained stable on his 2nd visit. No lab work or imaging. He was admitted for further care. His Troponin was elevated to 0.037 after admission. Review of Systems Review of Systems: All systems reviewed & are unremarkable except as noted in HPI and below [facility] Past Medical History Medical History (Updated 05/25/25 @ 13:[address] MD) Sickle cell anemia Surgical History Surgical History (Updated 05/25/25 @ 13:[address] MD) No history of previous surgery No pertinent past surgical history Family History Family History (Updated 05/25/25 @ 13:[address] MD) Grandparent Diabetes mellitus Social History Social History (Updated 05/25/25 @ 13:[address] MD) Social History: No tobacco, alcohol or drug use. 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 Full code Surrogate decision maker - mother Smoking status: Never smoker Lack of Transportation: No Lack of Food: Never True Current Housing: I Have Housing Concerned About Future Housing: No Difficulty Paying Gas/Electric Bills: No Difficulty Paying for Meds: No Currently Unemployed: YES Education: Trade/Vocational Certificate Difficulty w/ Childcare or Family Care: No Spiritual care concerns: No Meds Home Medications and Allergies Home Medications ?Medication ?Instructions ?Recorded ?Confirmed ?Type acetaminophen 325 mg capsule 650 mg PO Q4H PRN mild pain 05/25/25 05/25/25 History folic acid 1 mg tablet 1 mg PO DAILY 05/25/25 05/25/25 History hydrocodone 5 mg-acetaminophen 325 1 tablet PO Q6H PRN moderate pain 05/25/25 05/25/25 History mg tablet hydroxyurea 500 mg capsule 1,000 mg PO DAILY 05/25/25 05/25/25 History ketorolac 10 mg tablet 10 mg PO Q4H PRN pain 05/25/25 05/25/25 History Allergies Allergy/AdvReac Type Severity Reaction Status Date / Time No Known Allergies Allergy Verified 04/18/25 22:37 Vital Signs Vital Signs - 24 hr 05/25/25 07:36 05/25/25 08:48 05/25/25 09:34 Temperature 97.9 F Pulse Rate 70 84 Respiratory Rate 20 16 Blood Pressure 142/89 H 120/82 Pulse Oximetry 100 100 97 Oxygen Delivery Room Air Nasal Cannula Oxygen Flow Rate 2 05/25/25 09:39 05/25/25 10:22 Temperature 97.0 F L Pulse Rate 62 60 Respiratory Rate 14 14 Blood Pressure 123/64 Pulse Oximetry 98 97 Oxygen Delivery Room Air Oxygen Flow Rate Exam Narrative: AF 97.0 123/64 60 14 97% ra Gen - well appearing male in no acute respiratory distress who is nontoxic-appearing lying semi recumbent in bed HEENT - normocephalic. Atraumatic. Pupils equal round and reactive. Extraocular motions intact. Sclera clear and anicteric. Nares patent. Oropharynx was clear. No oral lesions. Moist mucous membranes. Tongue was midline. Palate jeffry symmetrically. No facial asymmetry. Neck - neck was supple. No dominant adenopathy, thyromegaly or masses. 2+ carotid upstrokes without bruits. Chest - lungs are clear to auscultation bilaterally. No wheezes or crackles. CV - heart was regular rate and rhythm. S1-S2. No murmurs gallops or rubs. Abd - abdomen was soft. Nontender. Nondistended. Positive bowel sounds. No organomegaly or masses. Ext - no clubbing, cyanosis or edema. 2+ DP pulses bilaterally. No cords. Left Homans Neuro - patient is alert and oriented x4. Strength is 5/5 in both upper and lower extremities. Cranial nerves 2-12 are intact. Speech is clear. Psych - normal mood and affect. Patient is pleasant and cooperative. Skin - warm and dry. No rashes noted. H&P: Results Labs Labs: Cardiac Enzymes 05/25/25 Range/Units 09:54 Troponin I 0.037 H* (0.000-0.034) ng/mL Assessment and Plan Assessment and plan (1) Chest pain: Code(s): R07.9 - Chest pain, unspecified Status: Acute Assessment and Plan: Consider early acute chest syndrome with chest pain, SOB and diffuse pain. No neurologic symptoms currently. CXR was clear and no symptoms to suggest PNA. Troponin elevated at 0.037. EKG showing T wave inversion in the anteroseptal leads but seem on prior EKGs. Serial Troponin. Move to IMU. Check Echo. Cardiology consult. Check CTA chest for PE. Check LE doppler. (2) Elevated troponin: Code(s): R79.89 - Other specified abnormal findings of blood chemistry Status: Acute Assessment and Plan: As above (3) Sickle cell pain crisis: Code(s): D57.00 - Hb-SS disease with crisis, unspecified Status: Acute Assessment and Plan: Patient with sickle cell disease here for diffuse pain c/w pain crisis. Mother feels morphine works better so pain meds changed to Morphine. Continue IV fluids Continue support care (4) Sickle cell anemia: Code(s): D57.1 - Sickle-cell disease without crisis Status: Acute Assessment and Plan: Hx of sickle cell disease. Continue folate, hydoxyurea. Check Hgb electophoresis Hematology consult Plan DVT prophylaxis - Lovenox Code status - full
[2025-05-25] MEDS: FOLIC ACID 1 MG TABLET PO (13:11)
[2025-05-25] MEDS: MORPHINE SULFATE (*CRX) 4 MG/ML INJ 2 MG IV PUSH (13:11)
[2025-05-25 13:43] LABS: Troponin I 0.026 ng/mL (0.000-0.034)
[2025-05-25] MEDS: HYDROXYUREA (*CHEMO) 500 MG CAPSULE 1000 MG PO (13:58)
--- NOTE | 2025-05-25 15:04 | PC.NURSE ---
This patient, Christoph Wilcox, was transferred to IMU room 209 on 05/25/25 at 1505. Personal belongings sent with patient. Report given. Appropriate documentation sent with patient.
[2025-05-25 17:06] LABS: Troponin I 0.024 ng/mL (0.000-0.034)
[2025-05-26] VITALS (16 sets, daily range): BP systolic 100–135; BP diastolic 46–79; PULSE 56–72; RESP 14–20; TEMP 36.6–37; O2SAT 90–100
--- NOTE | 2025-05-26 | ECHO_ITS ---
Patient Info Name: Christoph Wilcox Age: 19 years : 2005 Gender: Male Ht: 68 in Wt: 158 lbs BSA: 1.86 m2 HR: 62 bpm BP: 100 / 47 mmHg Heart Rhythm: Sinus Rhythm Technical Quality: Good Exam Date: 05/26/2025 10:07 AM Patient Status: O Admit Date: 05/25/2025 Exam Type: CA echo doppler color flow Complete two-dimensional, color flow and Doppler transthoracic echocardiogram is performed. Staff Referring Physician: Arsen Street MD Patrol Judge: Alize Gonzalez Attending Provider: Arsen Street MD Summary 1. Complete two-dimensional, color flow and Doppler transthoracic echocardiogram is performed. 2. Left ventricular systolic function is normal, estimated at 60-65. 3. The left ventricular diastolic function is normal. 4. There is mild pulmonic regurgitation. 5. There is trace tricuspid valve regurgitation. 6. No pulmonary hypertension, estimated pulmonary arterial systolic pressure is 24 mmHg. Left Ventricle Left ventricular chamber dimension is normal. Left ventricular systolic function is normal, estimated at 60-65. There is no increased left ventricular wall thickness. Left ventricular septal wall motion is normal. The left ventricular diastolic function is normal. Right Ventricle Right ventricular chamber dimension is normal. Right ventricular systolic function is normal. Left Atria Left atrial chamber dimension is normal. Right Atria Right atrial chamber dimension is normal. Aortic Valve The aortic valve is trileaflet. There is no aortic valve sclerosis. There is no aortic valve stenosis. There is no aortic valve regurgitation. Pulmonic Valve The pulmonic valve is normal. There is no pulmonic valve stenosis. There is mild pulmonic regurgitation. Mitral Valve The mitral valve has normal leaflets. There is no mitral valve stenosis. There is no mitral valve regurgitation. Tricuspid Valve The tricuspid valve leaflets are normal. There is no significant tricuspid valve stenosis. There is trace tricuspid valve regurgitation. No pulmonary hypertension, estimated pulmonary arterial systolic pressure is 24 mmHg. Pericardium/Pleural The pericardium appears normal. There is no pericardial effusion. Inferior Vena Cava Normal inferior vena cava with >50% collapse upon inspiration consistent with normal right atrial pressure, 5 mmHg. Aorta The aortic root size at the sinus of Valsalva is normal. The prox ascending aorta size is normal. Left Ventricular Outflow Tract Name Value Normal LVOT 2D LVOT Diameter 20.8 mm LVOT Doppler LVOT Peak Velocity 88 cm/s LVOT Peak Gradient 3 mmHg LVOT Mean Gradient 2 mmHg LVOT VTI 18 cm LVOT VTI/AV VTI Ratio 0.7 LVOT Stroke Volume 60 ml LVOT CO 3.8 l/min LVOT CI 2.0 l/min/m2 Pulmonic Valve Name Value Normal RVOT Doppler RVOT Peak Velocity 77 cm/s RVOT Peak Gradient 2 mmHg PV Doppler PV Peak Velocity 125 cm/s PV Peak Gradient 6 mmHg Mitral Valve Name Value Normal MV Diastolic Function MV E Peak Velocity 132 cm/s 60-126 MV A Peak Velocity 44 cm/s 18-67 MV E/A 3.0 1.2-3.6 MV Decel Time (PW) 176 ms MV Annular TDI MV E/e' (Septal) 13.3 3.6-10.1 MV E/e' (Lateral) 7.5 2.0-7.9 MV E/e' (Average) 10.4 2.9-8.5 Tricuspid Valve Name Value Normal TV Regurgitation Doppler TR Peak Velocity 220 cm/s TR Peak Gradient 19 mmHg Estimated PAP/RSVP RA Pressure 5 mmHg PA Systolic Pressure 24 mmHg RV Systolic Pressure 24 mmHg TV Annular TDI TV Lateral Layne s' Velocity 12.4 cm/s 9.2-17.8 Aorta Name Value Normal Ascending Aorta Ao Root Diameter (MM) 32.0 mm Ao Root Diam Index (MM) 17.2 mm/m2 Aortic Valve Name Value Normal AV Doppler AV Peak Velocity 130 cm/s AV Peak Gradient 7 mmHg AV Mean Gradient 3 mmHg AV VTI 26 cm AV Area (Cont Eq VTI) 2.3 cm2 AV Area (Cont Eq Alex) 2.3 cm2 AV DI (Alex) 0.68 AV Regurgitation 2D LVOT Area 3.4 cm2 Ventricles Name Value Normal LV Dimensions 2D/MM IVS Diastolic Thickness (2D) 8.4 mm 6.4-10.6 LVID Diastole (2D) 54.6 mm 44.6-57.9 LVIW Diastolic Thickness (2D) 7.6 mm 6.6-10.1 LVID Systole (2D) 37.1 mm 28.1-38.8 LVOT Diameter 20.8 mm LV Mass (2D Cubed) 158.20 g 99.66-175.76 LV Mass Index (2D Cubed) 85 g/m2 Relative Wall Thickness (2D) 0.28 LV Fractional Shortening/Ejection Fraction 2D/MM LV Fractional Shortening (2D) 32 % 28-42 LV EF (2D Teichholz) 60 % LV Diastolic Volume (4C MOD) 124 ml LV EF (4C MOD) 68 % LV Diastolic Volume (2C MOD) 149 ml LV EF (2C MOD) 72 % LV Diastolic Volume (BP MOD) 136 ml LV Diastolic Volume Index (BP MOD) 73 ml/m2 LV Systolic Volume (BP MOD) 41 ml LV Systolic Volume Index (BP MOD) 22 ml/m2 LV EF (BP MOD) 70 % LV Diastolic Length (4C) 87.8 mm 70.3-95.6 LV Systolic Length (4C) 61.5 mm 55.9-79.4 LV Stroke Volume (4C MOD) 84 ml Atria Name Value Normal LA Dimensions LA Dimension (MM) 48.7 mm LA Volume (4C A-L) 83 ml LA Volume (BP A-L) 89 ml 32-92 RA Dimensions RA Area (4C) 17.2 cm2 11.9-21.5 Report Signatures
[2025-05-26] MEDS: ONDANSETRON INJ 4 MG/2 ML VIAL IV PUSH (01:10)
[2025-05-26] MEDS: DEXTROSE 5%/0.45% SOD CHL 1,000 ML 150 ML XX (01:10)
[2025-05-26 04:45] LABS: Hematocrit 26.7 % (42.0-52.0); Hemoglobin 9.9 g/dL (14.0-18.0); Immature Granulocyte Percent A 0.2 % (0-0.5); Lymphocytes Absolute Auto 3.06 K/mm3 (0.9-3.2); Mean Corpuscular HGB Conc 37.1 g/dl (32-36); Mean Corpuscular Hemoglobin 33.8 pg (26-34); Mean Corpuscular Volume 91.1 fl (80-100); Nucleated Red Blood Cells Absolute Auto 0.030 K/mm3 (0.0-0.012); Nucleated Red Blood Cells Perc 0.5 % (0.0-0.2); Platelet Count Result 247 k/mm3 (150-375); Red Blood Count 2.93 M/mm3 (4.6-6.20); White Blood Count 5.6 K/mm3 (4.5-10.0)
[2025-05-26 05:20] LABS: Alanine Aminotransferase 29 U/L (6-50); Albumin Level 3.6 g/dL (3.5-5.1); Alkaline Phosphatase 65 U/L (38-126); Anion Gap 5 mmol/L (4-12); Aspartate Amino Transferase 78 U/L (17-59); Bilirubin,Total 2.0 mg/dL (0.2-1.3); Blood Urea Nitrogen 6 mg/dL (9-20); Calcium 8.3 mg/dL (8.4-10.2); Carbon Dioxide 25 mmol/L (22-30); Chloride 107 mmol/L (98-107); Estimated CRCL calculation 123 ml/min; Estimated Glomerular Filt Rate > 60; Glucose 112 mg/dL (65-110); Potassium 4.0 mmol/L (3.4-5.0); Sodium 137 mmol/L (137-145); Total Protein 6.4 g/dL (6.3-8.2)
[2025-05-26 05:21] LABS: Immature Reticulocyte Fraction 31.2 % (3.0-15.9); Reticulocyte Hemoglobin Conten 32.1 pg (28.2-36.6); Reticulocytes Absolute 0.19 10^6/uL (0.02-0.10)
[2025-05-26 05:43] LABS: Creatine Kinase > 1600 U/L (55-170)
[2025-05-26] MEDS: ACETAMINOPHEN 325 MG TABLET 650 MG PO (08:02)
[2025-05-26] MEDS: HYDROXYUREA (*CHEMO) 500 MG CAPSULE 1000 MG PO (08:03)
[2025-05-26] MEDS: FOLIC ACID 1 MG TABLET PO (08:03)
[2025-05-26] MEDS: ENOXAPARIN 40 MG/0.4 ML SYRINGE SUB-Q (08:04)
[2025-05-26] MEDS: SODIUM CHLORIDE 0.9% IV 1,000 ML 150 ML IV CONT ×3 (08:39→21:32)
--- NOTE | 2025-05-26 13:02 | PM.IMPN ---
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 Etiology unclear but could be normal variant. Consider myocarditis with chest pain, mildly elevated Trop Consider infiltrative disorder or Lyme (2) Rhabdomyolysis: Code(s): M62.82 - Rhabdomyolysis Status: Acute Assessment and Plan: TCK>1600. Sickle cell is associate with higher risk for rhabdo but he did not have recent physical exertion. Consider viral infection as etiology. Could explain the mildly elevated Trop Continue IV fluids. Serial TCK (3) Chest pain: Code(s): R07.9 - Chest pain, unspecified Status: Acute Assessment and Plan: Consider early acute chest syndrome with chest pain, SOB and diffuse pain. No neurologic symptoms currently. CXR was clear and no symptoms to suggest PNA. Troponin peaked at 0.037. EKG showing T wave inversion in the anteroseptal leads but seem on prior EKGs. CT chest negative for PE or cardiopulmonary findings. LE venous Doppler negative for DVT Echo normal with EF 60-65% and normal diastolic fxn. Cardiology consulted. (4) Elevated troponin: Code(s): R79.89 - Other specified abnormal findings of blood chemistry Status: Acute Assessment and Plan: As above (5) Sickle cell pain crisis: Code(s): D57.00 - Hb-SS disease with crisis, unspecified Status: Acute Assessment and Plan: Patient with sickle cell disease here for diffuse pain c/w pain crisis. Mother feels morphine works better so pain meds changed to Morphine. Continue IV fluids Continue support care (6) Sickle cell anemia: Code(s): D57.1 - Sickle-cell disease without crisis Status: Acute Assessment and Plan: Hx of sickle cell disease. Continue folate, hydoxyurea. Check Hgb electrophoresis. Check iron studies. Hematology consult Plan DVT prophylaxis - Lovenox Code status - full Subjective Date/time seen: 05/26/25 13:02 Interval history: 19yo male with with sickle cell disease here for chest pain and shortness of breath. Slept poorly last night due to increasing pain. Morphine does control the pain. Eating okay. Chest pain better. Exam Narrative: AF 98.6 107/52 58 14 100% ra Gen - NARD Chest - lungs are clear to auscultation bilaterally. No wheezes or crackles. CV - RRR. S1-S2. Tele showing 2nd AVB Type I Abd - soft. Nontender. Nondistended. Positive bowel sounds. No organomegaly or masses. Ext - no pedal edema. Neuro - nonfocal Psych - normal mood and affect. Skin - warm and dry. Objective Data Vital Signs Vital Signs: Vital Signs - 24 hr 05/25/25 14:00 05/25/25 15:20 05/25/25 15:55 Temperature 97.5 F L 98.0 F 98.0 F Pulse Rate 70 66 66 Respiratory Rate 16 16 16 Blood Pressure 122/45 L 124/54 L 124/54 L Pulse Oximetry 97 98 98 Oxygen Delivery 05/25/25 16:00 05/25/25 16:00 05/25/25 18:00 Temperature Pulse Rate 77 74 Respiratory Rate Blood Pressure Pulse Oximetry Oxygen Delivery Room Air 05/25/25 20:00 05/25/25 20:00 05/25/25 22:00 Temperature 97.9 F Pulse Rate 65 66 62 Respiratory Rate 14 Blood Pressure 125/61 Pulse Oximetry 98 Oxygen Delivery 05/25/25 23:39 05/26/25 00:00 05/26/25 00:00 Temperature 98.3 F Pulse Rate 66 61 Respiratory Rate 18 Blood Pressure 94/54 L Pulse Oximetry 98 Oxygen Delivery Room Air 05/26/25 02:00 05/26/25 03:41 05/26/25 04:00 Temperature 97.9 F Pulse Rate 58 L 60 Respiratory Rate 15 Blood Pressure 100/47 L Pulse Oximetry 95 Oxygen Delivery Room Air 05/26/25 04:00 05/26/25 06:00 05/26/25 07:20 Temperature 98.0 F Pulse Rate 64 62 63 Respiratory Rate 16 Blood Pressure 102/58 L Pulse Oximetry 99 Oxygen Delivery 05/26/25 08:00 05/26/25 08:00 05/26/25 10:00 Temperature Pulse Rate 56 L 56 L 61 Respiratory Rate 16 Blood Pressure Pulse Oximetry 99 Oxygen Delivery Room Air 05/26/25 11:58 Temperature 98.6 F Pulse Rate 58 L Respiratory Rate 14 Blood Pressure 107/52 L Pulse Oximetry 100 Oxygen Delivery Intake/Output Intake/Output: Intake & Output 09/26/05/24/25 05/25/25 05/26/25 23:59 23:59 23:59 23:59 Intake Total 1460 200 Output Total 750 Balance 710 200 Meds/Results Medications: Active Medications Generic Name Dose Route Start Last Admin Trade Name Freq PRN Reason Stop Dose Admin Acetaminophen 650 mg 05/25/25 08:31 05/26/25 08:02 Acetaminophen 325 Mg Tablet PO 650 mg Q4H PRN Administration Mild Pain (1-3) or Fever Hydrocodone Bitart/Acetaminophen 1 tab 05/25/25 08:31 05/25/25 23:44 Hydrocodone/Acetaminophen (*Crx) 5-325 Mg Tablet PO 1 tab Q4H PRN Administration Pain Rated 4-6 Enoxaparin Sodium 40 mg 05/25/25 13:45 05/26/25 08:04 Enoxaparin 40 Mg/0.4 Ml Syringe SUB-Q 40 mg DAILY DEMI Administration Folic Acid 1 mg 05/25/25 13:00 05/26/25 08:03 Folic Acid 1 Mg Tablet PO 1 mg DAILY DEMI Administration Hydroxyurea 1,000 mg 05/25/25 13:00 05/26/25 08:03 Hydroxyurea (*Chemo) 500 Mg Capsule PO 1,000 mg DAILY DEMI Administration Sodium Chloride 1,000 mls @ 150 mls/hr 05/26/25 08:30 05/26/25 08:39 Normal Saline Iv IV CONT 150 mls/hr .Q6H40M DEMI Administration Morphine Sulfate 2 mg 05/25/25 12:51 05/25/25 13:11 Morphine Sulfate (*Crx) 4 Mg/Ml Inj IV PUSH 2 mg Q4H PRN Administration Pain Rated 7-10 Ondansetron HCl 4 mg 05/25/25 08:31 05/26/25 01:10 Ondansetron Inj 4 Mg/2 Ml Vial IV PUSH 4 mg Q4H PRN Administration Nausea Perflutren Lipid Microsphere 0 ml 05/25/25 12:54 Perflutren Lipid Microspheres 1.5 Ml Vial Diluted To 10 Ml Total Volume IV PUSH 05/28/25 12:55 ONCE PRN adequate visualization Protocol Radiology Results: ITS Impressions Chest CTA 05/25/25 13:52 IMPRESSION: 1. No PE or other acute cardiopulmonary findings. Venous Doppler Study 05/25/25 17:42 Impression: Negative for DVT. Labs Labs: Laboratory Results - last 24 hr 05/25/25 05/25/25 05/25/25 09:53 13:12 16:26 WBC RBC Hgb Hct MCV MCH MCHC RDW Plt Count MPV Immature Gran % (Auto) Neut % (Auto) Lymph % (Auto) Bonner % (Auto) Eos % (Auto) Baso % (Auto) Lymph # (Auto) Bonner # (Auto) Eos # (Auto) Baso # (Auto) Abs Immat Gran (auto) Absolute Neuts (auto) Absolute Nucleated RBC Nucleated RBC % Absolute Retic Percent Retic Immature Retic Fraction Retic Hgb Content Hemoglobin A % Cancelled Hemoglobin A2 Quant Cancelled Hemoglobin C % Cancelled Hemoglobin E % Cancelled Hemoglobin F Percent Cancelled Hemoglobin S % Cancelled Hemoglobinopathy Red Blood Count Cancelled Hemoglobinopathy Hct Cancelled Hemoglobinopathy Hgb Cancelled Hemoglobinopathy MCV Cancelled Hemoglobinopathy MCH Cancelled Hemoglobinopathy RDW Cancelled Hemoglobinopathy Interp Cancelled Hemoglobin Other Cancelled Hemoglobin Other 2 Cancelled Sodium Potassium Chloride Carbon Dioxide Anion Gap BUN Creatinine Estim Creat Clear Calc Estimated GFR Glucose Calcium Total Bilirubin AST ALT Alkaline Phosphatase Lactate Dehydrogenase Total Creatine Kinase Troponin I 0.026 D 0.024 Total Protein Albumin 05/26/25 04:25 WBC 5.6 RBC 2.93 L Hgb 9.9 L Hct 26.7 L MCV 91.1 MCH 33.8 MCHC 37.1 H RDW 13.8 Plt Count 247 MPV 8.6 Immature Gran % (Auto) 0.2 Neut % (Auto) 24.4 L Lymph % (Auto) 54.9 H Bonner % (Auto) 11.5 H Eos % (Auto) 7.9 H Baso % (Auto) 1.1 Lymph # (Auto) 3.06 Bonner # (Auto) 0.6 Eos # (Auto) 0.4 H Baso # (Auto) 0.1 Abs Immat Gran (auto) 0.01 Absolute Neuts (auto) 1.4 Absolute Nucleated RBC 0.030 H Nucleated RBC % 0.5 H Absolute Retic 0.19 H Percent Retic 6.32 H Immature Retic Fraction 31.2 H Retic Hgb Content 32.1 Hemoglobin A % Hemoglobin A2 Quant Hemoglobin C % Hemoglobin E % Hemoglobin F Percent Hemoglobin S % Hemoglobinopathy Red Blood Count Hemoglobinopathy Hct Hemoglobinopathy Hgb Hemoglobinopathy MCV Hemoglobinopathy MCH Hemoglobinopathy RDW Hemoglobinopathy Interp Hemoglobin Other Hemoglobin Other 2 Sodium 137 Potassium 4.0 Chloride 107 Carbon Dioxide 25 Anion Gap 5 BUN 6 L D Creatinine 0.81 Estim Creat Clear Calc 123 Estimated GFR > 60 Glucose 112 H Calcium 8.3 L Total Bilirubin 2.0 H AST 78 H ALT 29 Alkaline Phosphatase 65 Lactate Dehydrogenase 270 H Total Creatine Kinase > 1600 H Troponin I Total Protein 6.4 Albumin 3.6
[2025-05-26 14:08] LABS: Iron 84 ug/dL (49-181)
[2025-05-26 14:17] LABS: Percent Iron Saturation 35 % (20-50)
--- NOTE | 2025-05-26 14:41 | P.CONCA_ITS ---
Assessment and Plan Assessment and plan (1) Chest pain: Code(s): R07.9 - Chest pain, unspecified Status: Acute Plan Assessment: 1. Patient with longstanding history of sickle cell disease presents with body aches and sickle cell pain crisis along with chest pain. Cardiac enzymes are negative. Patient had pulmonary CT angiogram which was done in the emergency room was negative for acute pulmonary embolism. Venous Doppler lower extremity was also negative for acute thrombosed venous disease. Patient appears to be atypical in nature. EKG shows chronic nonspecific T changes in anteroseptal leads. 2. Abnormal EKG with T-wave inversion in anteroseptal leads which is not significantly changed from previous EKG. This could be a normal pattern for a young gentleman. Rule out sickle cell disease related cardiomyopathy. 3. Anemia related to sickle cell disease. Hemoglobin is 9.9 at the present time. Recommendation: 1. Echocardiogram to evaluate for left ventricular systolic function and wall motion abnormalities in view of abnormal resting EKG. 2. Treat underlying chest pain crisis. 3. Further recommendations to follow after reviewing echocardiogram. History of Present Illness History of Present Illness Consult date/time: 05/26/25 14:41 Requesting physician: Arsen Street MD Reason For Visit: Chest pain Narrative: Recurrent admission for this 19-year-old gentleman with known history of sickle cell disease and anemia. Patient has recurrent visits to the emergency room with pain crisis patient was evaluated 05/25/2025 with complaints of diffuse body ache, chest pain. No shortness of breath, abdominal pain, nausea vomiting or diarrhea. Patient has been evaluated by chest pain previously. Cardiac enzymes were negative an EKG showed T changes in the anteroseptal leads which is not changed from before. Patient had pulmonary CT angiogram done in the emergency room which was negative for acute pulmonary embolism or other significant abnormalities. Venous Doppler performed on lower extremities was also negative for venous thrombosis. Review of Systems 2 Review of Systems: Fourteen points review of symptoms was performed but at pertinent positive and negative findings per HPI. [facility]LY [facility] Past Medical History Medical History Sickle cell anemia Surgical History Surgical History No history of previous surgery No pertinent past surgical history Family History Family History Grandparent Diabetes mellitus Social History Social History Social History: No tobacco, alcohol or drug use. 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 Full code Surrogate decision maker - mother Smoking status: Never smoker Lack of Transportation: No Lack of Food: Never True Current Housing: I Have Housing Concerned About Future Housing: No Difficulty Paying Gas/Electric Bills: No Difficulty Paying for Meds: No Currently Unemployed: YES Education: Trade/Vocational Certificate Difficulty w/ Childcare or Family Care: No Spiritual care concerns: No Meds Home Medications and Allergies Home Medications ?Medication ?Instructions ?Recorded ?Confirmed ?Type acetaminophen 325 mg capsule 650 mg PO Q4H PRN mild pa in 05/25/25 05/25/25 History folic acid 1 mg tablet 1 mg PO DAILY 05/25/2505/25 History hydrocodone 5 mg-acetaminophen 325 1 tablet PO Q6H PRN moderate pain 05/25/25 05/25/25 History mg tablet hydroxyurea 500 mg capsule 1,000 mg PO DAILY 05/25/25 05/25/25 History ketorolac 10 mg tablet 10 mg PO Q4H PRN pain 05/25/25 History Allergies Allergy/AdvReac Type Severity Reaction Status Date / Time No Known Allergies Allergy Verified 04/18/25 22:37 Vital Signs Vital Signs - 24 hr 05/25/25 15:20 05/25/25 15:55 05/25/25 16:00 Temperature 36.7 C 36.7 C Pulse Rate 66 66 Respiratory Rate 16 16 Blood Pressure 124/54 L 124/54 L Pulse Oximetry 98 98 Oxygen Delivery Room Air 05/25/25 16:00 05/25/25 18:00 05/25/25 20:00 Temperature 36.6 C Pulse Rate 77 74 65 Respiratory Rate 14 Blood Pressure 125/61 Pulse Oximetry 98 Oxygen Delivery 05/25/25 20:00 05/25/25 22:00 05/25/25 23:39 Temperature 36.8 C Pulse Rate 66 62 66 Respiratory Rate 18 Blood Pressure 94/54 L Pulse Oximetry 98 Oxygen Delivery 05/26/25 00:00 05/26/25 00:00 05/26/25 02:00 Temperature Pulse Rate 61 58 L Respiratory Rate Blood Pressure Pulse Oximetry Oxygen Delivery Room Air 05/26/25 03:41 05/26/25 04:00 05/26/25 04:00 Temperature 36.6 C Pulse Rate 60 64 Respiratory Rate 15 Blood Pressure 100/47 L Pulse Oximetry 95 Oxygen Delivery Room Air 05/26/25 06:00 05/26/25 07:20 05/26/25 08:00 Temperature 36.7 C Pulse Rate 62 63 56 L Respiratory Rate 16 16 Blood Pressure 102/58 L Pulse Oximetry 99 99 Oxygen Delivery Room Air 05/26/25 08:00 05/26/25 10:00 05/26/25 11:58 Temperature 37.0 C Pulse Rate 56 L 61 58 L Respiratory Rate 14 Blood Pressure 107/52 L Pulse Oximetry 100 Oxygen Delivery 05/26/25 12:00 05/26/25 12:00 05/26/25 14:00 Temperature Pulse Rate 68 68 66 Respiratory Rate 14 Blood Pressure Pulse Oximetry 100 Oxygen Delivery Room Air Exam 2 Narrative: GENERAL: Well-appearing, well-nourished, and in no acute distress. HEAD: Normocephalic, atraumatic. ENT: Mucous membranes moist. CHEST: Clear to auscultation. No respiratory distress. HEART: Regular rate and rhythm. Normal peripheral pulses. ABDOMEN: Soft, nontender, nondistended. EXTREMITIES: Normal range of motion. No edema. SKIN: Warm, dry, no rash. NEURO: Alert and oriented x3. PSYCH: Normal mood and affect. Results Labs and Meds 05/26/25 04:25 05/26/25 04:25 Lab results: Cardiac Enzymes 05/25/25 05/26/25 Range/Units 16:26 04:25 AST 78 H (17-59) U/L Lactate Dehydrogenase 270 H (120-246) U/L Troponin I 0.024 (0.000-0.034) ng/mL CBC 05/26/25 Range/Units 04:25 WBC 5.6 (4.5-10.0) K/mm3 RBC 2.93 L (4.6-6.20) M/mm3 Hgb 9.9 L (14.0-18.0) g/dL Hct 26.7 L (42.0-52.0) % Plt Count 247 (150-375) k/mm3 Lymph # (Auto) 3.06 (0.9-3.2) K/mm3 [place] # (Auto) 0.6 (0.1-0.6) K/mm3 Eos # (Auto) 0.4 H (0-0.3) K/mm3 Baso # (Auto) 0.1 (0.0-0.1) K/mm3 Comprehensive Metabolic Panel 05/26/25 Range/Units 04:25 Sodium 137 (137-145) mmol/L Potassium 4.0 (3.4-5.0) mmol/L Chloride 107 (98-107) mmol/L Carbon Dioxide 25 (22-30) mmol/L BUN 6 L D (9-20) mg/dL Creatinine 0.81 (0.7-1.3) mg/dL Glucose 112 H (65-110) mg/dL Calcium 8.3 L (8.4-10.2) mg/dL AST 78 H (17-59) U/L ALT 29 (6-50) U/L Alkaline Phosphatase 65 (38-126) U/L Total Protein 6.4 (6.3-8.2) g/dL Albumin 3.6 (3.5-5.1) g/dL Intake and Output 05/25/25 05/26/25 05/26/25 23:59 07:59 15:59 Intake Total 1460 200 240 Output Total 750 Balance 710 200 240 Intake: Oral 1460 200 240 Output: Urine 750 Other: # Unmeasured Voids 1 Patient Weight 05/26/25 23:59 Weight 80.7 kg Quality If No VTE Prophylaxis Answer both mechanical and pharmacologic: Reason no mechanical VTE proph: low risk/not indicated Reason no pharmacologic proph: low risk/not indicated
[2025-05-26 14:49] LABS: Ferritin 130.00 ng/mL (17.9-464)
--- NOTE | 2025-05-26 16:34 | PC.NURSE ---
On 05/26/25, the student, Siria Ramires, provided care and completed [facility] documentation on this patient. I have reviewed the student's documentation and agree with the findings.Josse, MSN, RN
--- NOTE | 2025-05-26 19:02 | P.CONONC_ITS ---
Assessment and Plan Assessment and plan (1) Sickle cell pain crisis: Code(s): D57.00 - Hb-SS disease with crisis, unspecified Status: Acute Assessment and Plan: Patient with diagnosis of sickle cell anemia about 8 years ago and follow-up with the oncologist at [facility] in [facility]. Patient came into the hospital with generalized musculoskeletal discomfort. The symptoms were typical of his sickle cell crisis. Labs showed slightly elevated troponin and elevated LDH and bilirubin consistent with sickle cell crisis. Patient pain is under good control now. I recommended to continue taking folic acid with hydroxyurea and follow-up with oncologist. Hemoglobin stable. Hemoglobin electrophoresis was ordered and pending. No signs of infection. He should be able to go home once cleared by the Cardiology. He will continue his home pain medication. He will follow-up with his certified credit counselor. HPI Data of Consult Date/Time: 05/26/25 19:02 Requesting Physician: Jerry Street MD Primary Care Provider: UNKNOWN,DOCTOR Consult Narrative Narrative: Christoph Wilcox is a 19 year old male with history of sickle cell anemia lives in [facility] and currently doing under graduation at [address]. Patient came into the hospital with complain of generalized musculoskeletal discomfort and shortness of breath. CTA chest showed no evidence of pulmonary embolism. Doppler study showed no evidence of DVT. Chest x-ray was clear. This year patient has been having frequent flares up but in the past his sickle cell anemia was well controlled. Patient has been taking hydroxyurea 1000 mg daily and just recently started folic acid. Cardiology was consulted due to chest pain and elevated troponin. Other labs showed hemoglobin of 9.9 LDH was elevated at 270 with elevated creatinine kinase. Iron was normal with elevated total bilirubin. Ferritin was normal. Patient home pain medication include Entriken 5 mg with Ketoralac. He is now feeling better and would like to go home. Review of Systems 2 Review of Systems: Twelve point review of system was reviewed [facility] Past Medical History Medical History Sickle cell anemia Surgical History Surgical History No history of previous surgery No pertinent past surgical history Family History Family History Grandparent Diabetes mellitus Social History Social History Social History: No tobacco, alcohol or drug use. Student at [address] studying Arts/Photography. Full code Surrogate decision maker - mother Smoking status: Never smoker Lack of Transportation: No Lack of Food: Never True Current Housing: I Have Housing Concerned About Future Housing: No Difficulty Paying Gas/Electric Bills: No Difficulty Paying for Meds: No Currently Unemployed: YES Education: Trade/Vocational Certificate Difficulty w/ Childcare or Family Care: No Spiritual care concerns: No Meds Home Medications and Allergies Home Medications ?Medication ?Instructions ?Recorded ?Confirmed ?Type acetaminophen 325 mg capsule 650 mg PO Q4H PRN mild pa in 05/25/25 05/25/25 History folic acid 1 mg tablet 1 mg PO DAILY 05/25/2505/25 History hydrocodone 5 mg-acetaminophen 325 1 tablet PO Q6H PRN moderate pain 05/25/25 05/25/25 History mg tablet hydroxyurea 500 mg capsule 1,000 mg PO DAILY 05/25/25 05/25/25 History ketorolac 10 mg tablet 10 mg PO Q4H PRN pain 05/25/25 History Allergies Allergy/AdvReac Type Severity Reaction Status Date / Time No Known Allergies Allergy Verified 04/18/25 22:37 Vital Signs Vital Signs - 24 hr 05/25/25 20:00 05/25/25 20:00 05/25/25 22:00 Temperature 36.6 C Pulse Rate 65 66 62 Respiratory Rate 14 Blood Pressure 125/61 Pulse Oximetry 98 Oxygen Delivery 05/25/25 23:39 05/26/25 00:00 05/26/25 00:00 Temperature 36.8 C Pulse Rate 66 61 Respiratory Rate 18 Blood Pressure 94/54 L Pulse Oximetry 98 Oxygen Delivery Room Air 05/26/25 02:00 05/26/25 03:41 05/26/25 04:00 Temperature 36.6 C Pulse Rate 58 L 60 Respiratory Rate 15 Blood Pressure 100/47 L Pulse Oximetry 95 Oxygen Delivery Room Air 05/26/25 04:00 05/26/25 06:00 05/26/25 07:20 Temperature 36.7 C Pulse Rate 64 62 63 Respiratory Rate 16 Blood Pressure 102/58 L Pulse Oximetry 99 Oxygen Delivery 05/26/25 08:00 05/26/25 08:00 05/26/25 10:00 Temperature Pulse Rate 56 L 56 L 61 Respiratory Rate 16 Blood Pressure Pulse Oximetry 99 Oxygen Delivery Room Air 05/26/25 11:58 05/26/25 12:00 05/26/25 12:00 Temperature 37.0 C Pulse Rate 58 L 68 68 Respiratory Rate 14 14 Blood Pressure 107/52 L Pulse Oximetry 100 100 Oxygen Delivery Room Air 05/26/25 14:00 05/26/25 16:00 05/26/25 16:00 Temperature 36.7 C Pulse Rate 66 70 69 Respiratory Rate 16 16 Blood Pressure 123/46 L Pulse Oximetry 100 100 Oxygen Delivery Room Air 05/26/25 16:00 05/26/25 18:00 Temperature Pulse Rate 66 69 Respiratory Rate Blood Pressure Pulse Oximetry Oxygen Delivery Exam 2 Narrative: Lungs are clear to auscultation bilaterally Cardiovascular regular rate rhythm no murmurs Abdomen soft nontender nondistended Extremities no edema Results Labs 05/26/25 04:25 05/26/25 04:25 Labs: Short CBC 05/26/25 Range/Units 04:25 WBC 5.6 (4.5-10.0) K/mm3 Hgb 9.9 L (14.0-18.0) g/dL Hct 26.7 L (42.0-52.0) % Plt Count 247 (150-375) k/mm3 BMP 05/26/25 04:25 Sodium 137 Potassium 4.0 Chloride 107 Carbon Dioxide 25 BUN 6 L D Creatinine 0.81 Glucose 112 H Calcium 8.3 L Cardiac Enzymes 05/26/25 Range/Units 04:25 Total Creatine Kinase > 1600 H (55-170) U/L Liver Function 05/26/25 Range/Units 04:25 Total Bilirubin 2.0 H (0.2-1.3) mg/dL AST 78 H (17-59) U/L ALT 29 (6-50) U/L Alkaline Phosphatase 65 (38-126) U/L Albumin 3.6 (3.5-5.1) g/dL
[2025-05-27] VITALS (10 sets, daily range): BP systolic 115–119; BP diastolic 46–58; PULSE 59–75; RESP 14–19; TEMP 36.6–36.8; O2SAT 96–98
[2025-05-27] MEDS: SODIUM CHLORIDE 0.9% IV 1,000 ML 150 ML IV CONT ×2 (04:06→10:44)
[2025-05-27 04:32] LABS: Hematocrit 27.2 % (42.0-52.0); Hemoglobin 10.0 g/dL (14.0-18.0); Immature Granulocyte Percent A 0.2 % (0-0.5); Lymphocytes Absolute Auto 2.43 K/mm3 (0.9-3.2); Mean Corpuscular HGB Conc 36.8 g/dl (32-36); Mean Corpuscular Hemoglobin 33.2 pg (26-34); Mean Corpuscular Volume 90.4 fl (80-100); Nucleated Red Blood Cells Absolute Auto 0.040 K/mm3 (0.0-0.012); Nucleated Red Blood Cells Perc 0.7 % (0.0-0.2); Platelet Count Result 287 k/mm3 (150-375); Red Blood Count 3.01 M/mm3 (4.6-6.20); White Blood Count 6.1 K/mm3 (4.5-10.0)
[2025-05-27 04:59] LABS: Anion Gap 4 mmol/L (4-12); Blood Urea Nitrogen 3 mg/dL (9-20); Calcium 8.4 mg/dL (8.4-10.2); Carbon Dioxide 26 mmol/L (22-30); Chloride 107 mmol/L (98-107); Creatine Kinase 708 U/L (55-170); Estimated CRCL calculation 127 ml/min; Estimated Glomerular Filt Rate > 60; Glucose 99 mg/dL (65-110); Magnesium 1.8 mg/dL (1.6-2.3); Potassium 3.9 mmol/L (3.4-5.0); Sodium 137 mmol/L (137-145)
[2025-05-27 05:15] LABS: Thyroid Stimulating Hormone Reflex 1.190 uIU/mL (0.465-4.68)
[2025-05-27] MEDS: FOLIC ACID 1 MG TABLET PO (08:40)
[2025-05-27] MEDS: HYDROXYUREA (*CHEMO) 500 MG CAPSULE 1000 MG PO (08:40)
--- NOTE | 2025-05-27 12:11 | P.CONCA_ITS ---
Assessment and Plan Assessment and plan (1) Chest pain: Code(s): R07.9 - Chest pain, unspecified Status: Acute (2) Sickle cell pain crisis: Code(s): D57.00 - Hb-SS disease with crisis, unspecified Status: Acute (3) Sickle cell anemia: Code(s): D57.1 - Sickle-cell disease without crisis Status: Acute Assessment and Plan: Assessment: 1. Patient with longstanding history of sickle cell disease presents with body aches and sickle cell pain crisis along with chest pain. Cardiac enzymes are negative. Patient had pulmonary CT angiogram which was done in the emergency room was negative for acute pulmonary embolism. Venous Doppler lower extremity was also negative for acute thrombosed venous disease. Patient appears to be atypical in nature. EKG shows chronic nonspecific T changes in anteroseptal leads. -patient is feeling much better today without any complaints of chest pain or shortness of breath. Echocardiogram is within normal limits. 2. Abnormal EKG with T-wave inversion in anteroseptal leads which is not significantly changed from previous EKG. This could be a normal pattern for a young gentleman. Rule out sickle cell disease related cardiomyopathy. -echocardiogram completed yesterday shows normal left ventricle size and systolic function without any right-sided abnormalities, pulmonary hypertension or significant valvular problems. 3. Anemia related to sickle cell disease. Hemoglobin is 10 g today and stable. Resolved pain crisis. Recommendation: Stable from cardiac viewpoint with negative echocardiogram. Okay to discharge patient home from cardiac viewpoint. Thank you again for allowing us to participate in care of this patient. History of Present Illness History of Present Illness Consult date/time: 05/27/25 12:11 Requesting physician: Arsen Street MD Reason For Visit: Chest pain Narrative: Review of HPI: Recurrent admission for this 19-year-old gentleman with known history of sickle cell disease and anemia. Patient has recurrent visits to the emergency room with pain crisis patient was evaluated 05/25/2025 with complaints of diffuse body ache, chest pain. No shortness of breath, abdominal pain, nausea vomiting or diarrhea. Patient has been evaluated by chest pain previously. Cardiac enzymes were negative an EKG showed T changes in the anteroseptal leads which is not changed from before. Patient had pulmonary CT angiogram done in the emergency room which was negative for acute pulmonary embolism or other significant abnormalities. Venous Doppler performed on lower extremities was also negative for venous thrombosis. Subjective: Patient examined at the bedside. Feeling much better today and is in good spirits. No complaints of shortness of breath or chest pain. Echocardiogram was completed yesterday and showed normal left ventricular size and systolic function without any significant valvular problems, pericardial effusion or pulmonary hypertension. Review of Systems 2 Review of Systems: Twelve point review of system was completed. Pertinent positive and negative findings per HPI. [facility] Past Medical History Medical History Sickle cell anemia Surgical History Surgical History No history of previous surgery No pertinent past surgical history Family History Family History Grandparent Diabetes mellitus Social History Social History Social History: No tobacco, alcohol or drug use. Student at [employer] studying Arts/Photography. Full code Surrogate decision maker - mother Smoking status: Never smoker Lack of Transportation: No Lack of Food: Never True Current Housing: I Have Housing Concerned About Future Housing: No Difficulty Paying Gas/Electric Bills: No Difficulty Paying for Meds: No Currently Unemployed: YES Education: Trade/Vocational Certificate Difficulty w/ Childcare or Family Care: No Spiritual care concerns: No Meds Home Medications and Allergies Home Medications ?Medication ?Instructions ?Recorded ?Confirmed ?Type acetaminophen 325 mg capsule 650 mg PO Q4H PRN mild pa in 05/25/25 05/25/25 History folic acid 1 mg tablet 1 mg PO DAILY 05/25/2505/25 History hydrocodone 5 mg-acetaminophen 325 1 tablet PO Q6H PRN moderate pain 05/25/25 05/25/25 History mg tablet hydroxyurea 500 mg capsule 1,000 mg PO DAILY 05/25/25 05/25/25 History ketorolac 10 mg tablet 10 mg PO Q4H PRN pain 05/25/25 History Allergies Allergy/AdvReac Type Severity Reaction Status Date / Time No Known Allergies Allergy Verified 04/18/25 22:37 Vital Signs Vital Signs - 24 hr 05/26/25 14:00 05/26/25 16:00 05/26/25 16:00 Temperature 36.7 C Pulse Rate 66 70 69 Respiratory Rate 16 16 Blood Pressure 123/46 L Pulse Oximetry 100 100 Oxygen Delivery Room Air Fraction of Inspired Oxygen 05/26/25 16:00 05/26/25 18:00 05/26/25 20:00 Temperature 36.6 C Pulse Rate 66 69 70 Respiratory Rate 16 Blood Pressure 135/79 Pulse Oximetry 98 Oxygen Delivery Fraction of Inspired Oxygen 05/26/25 20:00 05/26/25 20:00 05/26/25 21:33 Temperature Pulse Rate 72 65 Respiratory Rate 20 Blood Pressure Pulse Oximetry 90 Oxygen Delivery Room Air Room Air Fraction of Inspired Oxygen 21 05/26/25 22:00 05/27/25 00:00 05/27/25 00:00 Temperature 36.6 C Pulse Rate 63 72 Respiratory Rate 16 Blood Pressure 117/51 L Pulse Oximetry 96 Oxygen Delivery Room Air Fraction of Inspired Oxygen 05/27/25 00:00 05/27/25 02:00 05/27/25 04:00 Temperature 36.6 C Pulse Rate 59 L 65 63 Respiratory Rate 16 Blood Pressure 119/46 L Pulse Oximetry 98 Oxygen Delivery Fraction of Inspired Oxygen 05/27/25 04:00 05/27/25 04:00 05/27/25 06:00 Temperature Pulse Rate 65 68 Respiratory Rate Blood Pressure Pulse Oximetry Oxygen Delivery Room Air Fraction of Inspired Oxygen 05/27/25 07:41 05/27/25 08:00 05/27/25 10:00 Temperature 36.6 C Pulse Rate 66 62 75 Respiratory Rate 14 Blood Pressure 115/58 L Pulse Oximetry 98 Oxygen Delivery Fraction of Inspired Oxygen 05/27/25 11:12 Temperature 36.8 C Pulse Rate 66 Respiratory Rate 19 Blood Pressure 116/52 L Pulse Oximetry 96 Oxygen Delivery Fraction of Inspired Oxygen Exam 2 Const: Other: Patient was examined at bedside. Patient is awake alert appears comfortable and in good spirits today. Denies any aches or pains, shortness of breath chest pain. The neck examination is unremarkable. Sclerae is nonicteric. ENT examination is negative. Neck is supple. There is no JVD or carotid bruit. Thyroid not enlarged. Lungs are clear to auscultation percussion. Heart sounds reveal normal S1-S2 S4 is present there is no significant murmurs. Abdomen is soft nontender. There is no hepatosplenomegaly. Bowel sounds present. Extremities revealed no pedal edema. Neurological examination is intact. Results Labs and Meds 05/27/25 04:09 05/27/25 04:09 Lab results: CBC 05/27/25 Range/Units 04:09 WBC 6.1 (4.5-10.0) K/mm3 RBC 3.01 L (4.6-6.20) M/mm3 Hgb 10.0 L (14.0-18.0) g/dL Hct 27.2 L (42.0-52.0) % Plt Count 287 (150-375) k/mm3 Lymph # (Auto) 2.43 (0.9-3.2) K/mm3 [place] # (Auto) 0.5 (0.1-0.6) K/mm3 Eos # (Auto) 0.4 H (0-0.3) K/mm3 Baso # (Auto) 0.1 (0.0-0.1) K/mm3 Comprehensive Metabolic Panel 05/27/25 Range/Units 04:09 Sodium 137 (137-145) mmol/L Potassium 3.9 (3.4-5.0) mmol/L Chloride 107 (98-107) mmol/L Carbon Dioxide 26 (22-30) mmol/L BUN 3 L (9-20) mg/dL Creatinine 0.78 (0.7-1.3) mg/dL Glucose 99 (65-110) mg/dL Calcium 8.4 (8.4-10.2) mg/dL Intake and Output 05/26/25 05/27/25 05/27/25 23:59 07:59 15:59 Intake Total 1755 1535 995 Output Total 1300 750 300 Balance 455 785 695 Intake: IV 965 985 995 Sodium Chloride 0.9% IV 1,000 965 985 995 ml @ 150 mls/hr IV CONT .Q6H40M [facility] Rx#:[id number] Oral 790 550 Output: Urine 1300 750 300 Other: # Unmeasured Voids 6 2 Patient Weight 05/27/25 23:59 Weight 82.6 kg Imaging and Cardiology Echo: report reviewed
[2025-05-27 13:09] LABS: ACE 22 U/L (14-82)
--- NOTE | 2025-05-27 15:35 | P.DS_ITS ---
DS: Admitting Diagnosis Discharge Date 05/27/25 Admitting Diagnosis Chest pain and shortness of breath DS: Discharge Diagnosis Discharge Diagnosis (1) AV block: Code(s): I44.30 - Unspecified atrioventricular block Status: Acute (2) Rhabdomyolysis: Code(s): M62.82 - Rhabdomyolysis Status: Acute (3) Chest pain: Code(s): R07.9 - Chest pain, unspecified Status: Acute (4) Elevated troponin: Code(s): R79.89 - Other specified abnormal findings of blood chemistry Status: Acute (5) Sickle cell pain crisis: Code(s): D57.00 - Hb-SS disease with crisis, unspecified Status: Acute (6) Sickle cell anemia: Code(s): D57.1 - Sickle-cell disease without crisis Status: Acute DS: Summary Hospital Course Reason for hospitalization: 19yo male with with sickle cell disease here for chest pain and shortness of breath. Please see H&P for details. Hospital Course: Patient presented with chest pain and SOB. We considered early acute chest syndrome with chest pain, SOB and diffuse pain. No neurologic symptoms. CXR was clear and no symptoms to suggest PNA. Troponin peaked at 0.037. EKG showing 1st degree AVB, T wave inversion in the anteroseptal leads but seem on prior EKGs. CT chest negative for PE or cardiopulmonary findings. LE venous Doppler negative for DVT. Echo normal with EF 60-65% and normal diastolic fxn. Cardiology consulted. 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 Etiology unclear but probably a normal variant. He also had a brief run of either NSVT or artifact. Discussed with cardiology who felt there were benign findings given the normal echo. Patient had elevated AST and mildly elevated Troponin so TCK was checked with showed rhabdomyolysis. TCK>1600. Sickle cell is associate with higher risk for rhabdo but he did not have recent physical exertion. Consider viral infection as etiology. He was treated with IV fluids and narcotics. Hematology consulted. We continued his folate, hydroxyurea. He had improvement in his pain. The chest pain resolved. He overall did well and was able to be discharged home on 05/27/2025. Discharge instructions were discussed. All questions were answered. Status at Discharge Cognitive/behavioral status at discharge: Stable Time Spent with Patient Time attestation: Total time spent providing and/or coordinating discharge services: 35 minutes Time spent: Greater than 30 minutes Exam Narrative: AF 98.3 116/52 63 19 96% ra Gen - NARD Chest - lungs are clear to auscultation bilaterally. No wheezes or crackles. CV - RRR. S1-S2. Tele showing 1st degree AVB and 6 beat run of possibly NSVT Abd - soft. Nontender. Nondistended. Positive bowel sounds. No organomegaly or masses. Ext - no pedal edema. Neuro - nonfocal Psych - normal mood and affect. In good spirits Skin - warm and dry. DS: Data Data Completed and Pending Labs on day of discharge: Labs from last 24 hours 05/27/25 05/26/25 04:09 13:38 WBC 6.1 RBC 3.01 L Hgb 10.0 L Hct 27.2 L MCV 90.4 MCH 33.2 MCHC 36.8 H RDW 13.6 Plt Count 287 MPV 8.9 Immature Gran % (Auto) 0.2 Neut % (Auto) 44.4 L Lymph % (Auto) 40.2 [place] % (Auto) 8.6 H Eos % (Auto) 5.8 H Baso % (Auto) 0.8 Lymph # (Auto) 2.43 [place] # (Auto) 0.5 Eos # (Auto) 0.4 H Baso # (Auto) 0.1 Abs Immat Gran (auto) 0.01 Absolute Neuts (auto) 2.7 Absolute Nucleated RBC 0.040 H Nucleated RBC % 0.7 H Sodium 137 Potassium 3.9 Chloride 107 Carbon Dioxide 26 Anion Gap 4 BUN 3 L Creatinine 0.78 Estim Creat Clear Calc 127 Estimated GFR > 60 Glucose 99 Calcium 8.4 Phosphorus 3.7 Magnesium 1.8 Total Creatine Kinase 708 H Ceruloplasmin 18.9 Angiotensin Convert Enz 22 TSH (Reflex) 1.190 [place] Total Antibody Negative Discharge Plan Discharge Attending physician on discharge: Arsen Street Consulting providers: Gino Gramajo; Agustín Varma; Felisa Garcia Discharging Clinician: Arsen Street Anticipated Discharge Date/Time: 05/27/25 15:45 Patient Disposition: Home Activity: as tolerated Diet: regular Discharge Instructions: Contact your doctor or call 911 and come to the Emergency Room if you have chest pain, lightheadedness with standing or other worrisome symptoms. Follow-up with your billing and accounting staff assistant at next scheduled appointment. Please call for appointment. Thank you for using [facility] for your health care needs. Patient Instructions: Antibiotic Form Patient Language: Micronesian Stand Alone Forms: General Discharge Information Follow-up/Referrals: UNKNOWN,DOCTOR [Primary Care Provider] - Call for Appointment Discharge Medications: Continued acetaminophen 325 mg capsule 650 mg PO Q4H PRN (Reason: mild pain) folic acid 1 mg tablet 1 mg PO DAILY hydroxyurea 500 mg capsule 1,000 mg PO DAILY ketorolac 10 mg tablet 10 mg PO Q4H PRN (Reason: pain) hydrocodone-acetaminophen 5-325 mg tablet 1 tablet PO Q6H PRN (Reason: moderate pain) Date of admission: 05/25/25 08:31 Primary Care Provider: UNKNOWN,DOCTOR Admitting Provider: Arsen Street Attending physician on admission: Arsen Street Condition: Stable Hospitalist MIPS Heart Failure (Exclusion) Patient has history of Heart Transplant or Left Ventricular Assistive Device?: No IF YES, STOP HERE Heart Failure (Qualifier) Patient has current or prior documentation of LVEF less than or equal to 40%, or mod/servere depressed LVSF?: No IF NO, STOP HERE
[2025-05-28 13:08] LABS: Hgb Fractionation HPLC YES YES; Hgb Solubility YES YES
== END 2025-05-27 16:13 | disposition home or self-care (01) ==
LOC: ANHED 08:09 → ANH3MEDSUR 08:45 → ANHIMU 15:20
PROVIDERS: Internal Medicine; Admitting Provider Internal Medicine; Emergency Provider Emergency Medicine; Visit Provider Internal Medicine
DX: I44.0 Atrioventricular block, first degree (principal); I44.1 Atrioventricular block, second degree; D57.00 Hb-SS disease with crisis, unspecified; D57.1 Sickle-cell disease without crisis; M62.82 Rhabdomyolysis; R79.89 Other specified abnormal findings of blood chemistry
CPT/HCPCS: 36415; 71275; 80048; 80053; 82164; 82390; 82550; 82728; 83020; 83021; 83540; 83550; 83615; 83735; 84100; 84443; 84484; 85025; 85046; 85660; 86618; 93005; 93306; 93970; 96361; 96372; 96374; 96375; 99285; A9270; G0378; G0379; J1171; J1650; J2270; J2405; J7030; Q9967